=== PATIENT | female | born 1950 | race Caucasian/White ===

== ENCOUNTER 2018-04-28 12:16 | Outpatient (REF) | payer MEDICARE, OTHER, SELFPAY ==
[2018-04-28 14:11] LABS: CREATININE 0.79 mg/dL (0.55-1.02)
[2018-04-28 19:04] LABS: Bilirubin Negative (Negative); Blood Negative (Negative); Clarity Clear; Glucose Negative (Negative); Ketones Negative (Negative); Leukocyte Esterase Negative (Negative); Nitrite Negative (Negative); Urobilinogen 0.2 EU/dL (Up TO 0.2)
== END 2018-04-28 12:17 ==
LOC: NCHCN 12:16
PROVIDERS: Visit Provider Nurse Practitioner Family
DX: R10.9 Unspecified abdominal pain (principal)
CPT/HCPCS: 36415; 81003; 82565

== ENCOUNTER 2018-04-28 13:03 | Outpatient (CLI) | payer MEDICARE, OTHER, SELFPAY ==
--- NOTE | 2018-04-28 13:04 | DI.RPTCT_ITS ---
SYMPTOMS/DIAGNOSIS: LEFT LOWER QUADRANT ABDOMINAL PAIN, R10.32, FAMILY H/O KIDNEY STONES, Z84.1 CT SCAN OF THE ABDOMEN AND PELVIS: CT scan of the abdomen and pelvis was performed with oral contrast only. Intravenous contrast was not administered due to lack of IV access. Comparison is 09/23/15. The lung bases are clear. There is a moderate-sized hiatal hernia noted. Lack of IV contrast does limit evaluation of the abdominal organs. The unenhanced liver, gallbladder, bile ducts, pancreas and adrenal glands are unremarkable. The patient is status post splenectomy. The unenhanced kidneys show no evidence of nephrolithiasis or hydronephrosis. The urinary bladder is intact. The reproductive organs are grossly unremarkable. There is atherosclerosis of the abdominal aorta, but no aneurysmal dilatation is present. No significant abdominal or pelvic adenopathy , ascites or pneumoperitoneum is present. There is diverticulosis of the colon, but no evidence of acute diverticulitis. No evidence of bowel obstruction or inflammation. There is a normal appendix in the right lower quadrant. Note is made of a small fat-containing umbilical hernia. There is artifact in the pelvis from the patient's right hip prosthesis. IMPRESSION: 1. No evidence of nephrolithiasis or hydronephrosis. 2. Colonic diverticulosis but no evidence of acute diverticulitis. 3. No evidence of an acute abdomen. 4. Moderate-sized hiatal hernia.
== END 2018-04-28 13:04 ==
PROVIDERS: Visit Provider Nurse Practitioner Family
DX: R10.32 Left lower quadrant pain (principal); K57.30 Diverticulosis of large intestine without perforation or abscess without bleeding; K44.9 Diaphragmatic hernia without obstruction or gangrene; Z84.1 Family history of disorders of kidney and ureter
CPT/HCPCS: 74176

== ENCOUNTER 2018-05-23 15:32 | Outpatient (REF) | payer MEDICARE, SELFPAY ==
--- NOTE | 2018-05-23 11:30 | PAPFT_PTH ---
PATIENT: Joann Marcial LOC: [facility] U#:[id number] AGE/SX: 67/F ROOM: RE05/23/[address]: Chelsy Riley MD : [id number] BED: DIS: 05/23/2018 SPEC #: [id number] RECD: 05/23/18 17:59 STATUS: JOB REQ #: [id number] FREDERICK: 05/23/18 11:[address]: Chelsy Riley DEPT: [facility] Cytology RECD BY: Lizbet Jorge ENTERED: 05/23/18 17:59 SP TYPE: PAPFT OTHR DR: Colette Walton Tissues: 1 - CX/ENDOCX FOR PAP SMEARS Procedures: PAP THIN PREP/[facility] Screening HPV DNA PROBE Comments: [id number]
== END 2018-05-23 15:52 ==
LOC: LBN 15:32
PROVIDERS: Referring Provider Obstetrics & Gynecology; Visit Provider Obstetrics & Gynecology
DX: Z12.4 Encounter for screening for malignant neoplasm of cervix (principal); Z11.51 Encounter for screening for human papillomavirus (HPV)
CPT/HCPCS: 88142; 87624

== ENCOUNTER 2018-06-26 00:51 | Outpatient (CLI) | payer MEDICARE, OTHER, SELFPAY ==
--- NOTE | 2018-06-26 14:02 | DI.MAMMO_ITS ---
SYMPTOM/DIAGNOSIS: DIAGNOSTIC, MASTODYNIA, N64.4, FIBROCYSTIC BREASTS, N60.19 MAMMOGRAMS: Mammograms were interpreted according to the usual protocol including computer analysis with CAD system, tomosynthesis and C view imaging. Comparison is made with prior examinations. Breast density, category B. No masses or microcalcifications are seen. There is nothing to suggest malignancy. IMPRESSION: Negative mammogram. Routine screening is recommended. Category 1. MQSA ASSESSMENT OF FINDINGS: Negative. Category 1. Patient will receive a letter notifying them of these results. BI-RADS category B. There are scattered areas of fibroglandular density.
== END 2018-06-26 01:11 ==
PROVIDERS: Visit Provider Family Medicine
DX: N64.4 Mastodynia (principal); N60.11 Diffuse cystic mastopathy of right breast; N60.12 Diffuse cystic mastopathy of left breast
CPT/HCPCS: 77062; 77066; G0279

== ENCOUNTER 2018-07-04 15:33 | Outpatient (CLI) | payer MEDICARE, OTHER, SELFPAY ==
[2018-07-04 15:56] LABS: Abs Immature Grans 0.03 k/cumm (0.0-0.09); Absolute Basophil Count 0.12 k/cumm (0.0-0.2); Absolute Eosinophil Count 0.88 k/cumm (0.0-0.7); Absolute Lymphocyte Count 4.78 k/cumm (1.2-3.4); Absolute Neutrophil Count 4.45 k/cumm (1.2-6.7); Basophils % 1.1; Eosinophils % 7.8; Immature Grans % 0.3; Lymphocytes % 42.4; Mean Corp. HGB Concentration 33.3 g/dL (32.0-36.0); Mean Corpuscular Hemoglobin 31.6 pg (27.0-33.0); Mean Corpuscular Volume 94.8 fL (80-95); Monocytes % 8.9; Neutrophils % 39.5; Platelet Count 429 x1000/uL (130-400); RBC 4.43 m/cumm (4.00-5.20); RBC Distribution Width 15.5 % (11.7-14.6); White Blood Cell Count 11.27 k/cumm (4.4-10.8)
[2018-07-04 16:09] LABS: ALT 27 U/L (12-78); AST 16 U/L (15-37); Albumin 3.6 g/dL (3.4-5.0); Alkaline Phosphatase 60 U/L (46-116); Anion Gap 7.4 mmol/L (3-11); BUN 19 mg/dL (7-18); Bilirubin, Total 0.2 mg/dL (0.2-1.0); CO2 29.6 mmol/L (21.0-32.0); CREATININE 0.77 mg/dL (0.55-1.02); Calcium 8.9 mg/dL (8.5-10.1); Chloride 103 mmol/L (98-107); Glucose 103 mg/dL (70-100); LDH 155 U/L (81-234); Potassium 4.2 mmol/L (3.5-5.1); Sodium 140 mmol/L (136-145); Total Protein 7.9 g/dL (6.4-8.2)
== END 2018-07-04 15:53 ==
PROVIDERS: Visit Provider Internal Medicine Hematology & Oncology
DX: C82.07 Follicular lymphoma grade I, spleen (principal)
CPT/HCPCS: 36415; 80053; 83615; 85025

== ENCOUNTER 2019-01-08 09:10 | Outpatient (CLI) | payer MEDICARE, OTHER, SELFPAY ==
[2019-01-08 11:03] LABS: ALT 36 U/L (12-78); AST 23 U/L (15-37); Albumin 3.7 g/dL (3.4-5.0); Alkaline Phosphatase 57 U/L (46-116); Anion Gap 9.8 mmol/L (3-11); BUN 20 mg/dL (7-18); Bilirubin, Total 0.4 mg/dL (0.2-1.0); CO2 27.2 mmol/L (21.0-32.0); Calcium 9.3 mg/dL (8.5-10.1); Chloride 102 mmol/L (98-107); Glucose 103 mg/dL (70-100); LDH 149 U/L (81-234); Potassium 4.7 mmol/L (3.5-5.1); Sodium 139 mmol/L (136-145); Total Protein 7.7 g/dL (6.4-8.2)
== END 2019-01-08 09:30 ==
PROVIDERS: PCP Family Medicine; Visit Provider Nurse Practitioner Family
DX: C85.87 Other specified types of non-Hodgkin lymphoma, spleen (principal); C82.07 Follicular lymphoma grade I, spleen
CPT/HCPCS: 36415; 80053; 83615

== ENCOUNTER 2019-01-30 10:12 | Outpatient (CLI) | payer MEDICARE, OTHER, SELFPAY ==
[2019-01-30 10:44] LABS: Abs Immature Grans 0.01 k/cumm (0.0-0.09); Absolute Basophil Count 0.11 k/cumm (0.0-0.2); Absolute Eosinophil Count 0.68 k/cumm (0.0-0.7); Absolute Lymphocyte Count 4.63 k/cumm (1.2-3.4); Absolute Monocyte Count 0.89 k/cumm (0.11-0.7); Absolute Neutrophil Count 4.13 k/cumm (1.2-6.7); Basophils % 1.1; Eosinophils % 6.5; HCT 43.1 % (36.0-46.0); HGB 14.3 g/dL (12.0-15.5); Immature Grans % 0.1; Lymphocytes % 44.3; Mean Corp. HGB Concentration 33.2 g/dL (32.0-36.0); Mean Corpuscular Hemoglobin 31.4 pg (27.0-33.0); Mean Corpuscular Volume 94.5 fL (80-95); Mean Platelet Volume 9.5 fL (8.0-11.0); Monocytes % 8.5; Neutrophils % 39.5; Platelet Count 450 x1000/uL (130-400); RBC 4.56 m/cumm (4.00-5.20); RBC Distribution Width 16.3 % (11.7-14.6); White Blood Cell Count 10.45 k/cumm (4.4-10.8)
== END 2019-01-30 10:32 ==
PROVIDERS: PCP Family Medicine; Visit Provider Internal Medicine Hematology & Oncology
DX: C82.07 Follicular lymphoma grade I, spleen (principal)
CPT/HCPCS: 36415; 85025

== ENCOUNTER 2019-06-25 18:06 | Outpatient (REF) | payer MEDICARE, OTHER, SELFPAY ==
[2019-06-25 18:25] LABS: Abs Immature Grans 0.02 k/cumm (0.0-0.09); Absolute Eosinophil Count 0.72 k/cumm (0.0-0.7); Absolute Lymphocyte Count 3.66 k/cumm (1.2-3.4); Absolute Monocyte Count 1.04 k/cumm (0.11-0.7); Basophils % 0.9; Eosinophils % 6.8; HCT 42.5 % (36.0-46.0); Immature Grans % 0.2; Lymphocytes % 34.4; Mean Corp. HGB Concentration 32.9 g/dL (32.0-36.0); Mean Corpuscular Hemoglobin 31.3 pg (27.0-33.0); Mean Corpuscular Volume 95.1 fL (80-95); Mean Platelet Volume 9.5 fL (8.0-11.0); Monocytes % 9.8; Neutrophils % 47.9; Platelet Count 492 x1000/uL (130-400); RBC 4.47 m/cumm (4.00-5.20); White Blood Cell Count 10.64 k/cumm (4.4-10.8)
[2019-06-25 18:43] LABS: ALT 31 U/L (14-59); AST 19 U/L (15-37); Albumin 3.9 g/dL (3.4-5.0); Alkaline Phosphatase 60 U/L (46-116); Anion Gap 6.9 mmol/L (3-11); BUN 16 mg/dL (7-18); Bilirubin, Total 0.3 mg/dL (0.2-1.0); CO2 30.1 mmol/L (21.0-32.0); Calcium 9.2 mg/dL (8.5-10.1); Chloride 105 mmol/L (98-107); Glucose 105 mg/dL (70-100); LDH 168 U/L (81-234); Potassium 3.9 mmol/L (3.5-5.1); Sodium 142 mmol/L (136-145); Total Protein 7.7 g/dL (6.4-8.2)
[2019-06-27 12:19] LABS: Hepatitis C Ab w Rflx HCV PCR Negative (NEGAT)
== END 2019-06-25 18:26 ==
LOC: NCHCN 18:06
PROVIDERS: PCP Family Medicine; Visit Provider Family Medicine
DX: R10.2 Pelvic and perineal pain (principal); Z85.72 Personal history of non-Hodgkin lymphomas; Z11.59 Encounter for screening for other viral diseases
CPT/HCPCS: 80053; 86803; 83615; 85025

== ENCOUNTER 2019-06-25 18:08 | Outpatient (REF) | payer MEDICARE, OTHER, SELFPAY ==
[2019-06-25 18:21] LABS: Bilirubin Negative (Negative); Blood Trace-lysed (Negative); Clarity Clear (Clear); Glucose Negative (Negative); Ketones Negative (Negative); Leukocyte Esterase Negative (Negative); Nitrite Negative (Negative); Specific Gravity 1.025 (1.005-1.025); Urobilinogen 0.2 EU/dL (Up TO 0.2); pH 5.5 (5-8)
[2019-06-25 18:30] LABS: Bacteria Few HPF (Negative); C & S Indicated? No; Casts Negative LPF (Negative); Crystals Negative HPF (Negative); Epithelial Cells Moderate HPF (Negative); Mucus Negative (Negative); Other Cells Few Transitional (Negative); RBC 0-2 (0-2)
== END 2019-06-25 18:28 ==
LOC: NCHCN 18:08
PROVIDERS: PCP Family Medicine; Visit Provider Family Medicine
DX: R10.2 Pelvic and perineal pain (principal)
CPT/HCPCS: 81003; 81015

== ENCOUNTER 2020-06-18 02:53 | Outpatient (CLI) | payer MEDICARE, OTHER, SELFPAY ==
[2020-06-18 10:22] LABS: Abs Immature Grans 0.01 10^3/uL (0.0-0.06); Absolute Basophil Count 0.14 10^3/uL (0.0-0.2); Absolute Eosinophil Count 0.73 10^3/uL (0.0-0.7); Absolute Lymphocyte Count 4.52 10^3/uL (1.2-3.4); Absolute Monocyte Count 0.79 10^3/uL (0.1-0.8); Absolute Neutrophil Count 2.43 10^3/uL (1.2-6.7); Basophils % 1.6; Eosinophils % 8.5; HCT 45.5 % (36.0-46.0); Immature Grans % 0.1; Lymphocytes % 52.4; MCH 31.3 pg (27.0-33.0); MCV 94.8 fL (80-95); MPV 8.8 fL (8.0-11.0); Monocytes % 9.2; Neutrophils % 28.2; Nucleated RBC 0 %; Platelet Count 479 10^3/uL (130-400); RDW-SD 52.9 fL; WBC 8.62 10^3/uL (4.4-10.8)
[2020-06-18 10:44] LABS: ALT 25 U/L (14-59); AST 20 U/L (15-37); Albumin 3.8 g/dL (3.4-5.0); Alkaline Phosphatase 51 U/L (46-116); Anion Gap 5.9 mmol/L (3-11); BUN 16 mg/dL (7-18); Bilirubin, Total 0.6 mg/dL (0.2-1.0); CO2 30.1 mmol/L (21.0-32.0); CREATININE 0.73 mg/dL (0.55-1.02); Calcium 9.4 mg/dL (8.5-10.1); Chloride 102 mmol/L (98-107); Glucose 107 mg/dL (74-106); Potassium 4.2 mmol/L (3.5-5.1); Sodium 138 mmol/L (136-145); Total Protein 8.3 g/dL (6.4-8.2)
== END 2020-06-18 03:13 ==
PROVIDERS: PCP Family Medicine; Visit Provider Internal Medicine Hematology & Oncology
DX: C82.07 Follicular lymphoma grade I, spleen (principal)
CPT/HCPCS: 36415; 80053; 85025

== ENCOUNTER 2020-09-08 14:50 | Outpatient (REF) | payer MEDICARE, OTHER, SELFPAY ==
[2020-09-08 18:31] LABS: Abs Immature Grans 0.01 10^3/uL (0.0-0.06); Absolute Basophil Count 0.13 10^3/uL (0.0-0.2); Absolute Eosinophil Count 0.46 10^3/uL (0.0-0.7); Absolute Lymphocyte Count 3.71 10^3/uL (1.2-3.4); Absolute Neutrophil Count 3.65 10^3/uL (1.2-6.7); Basophils % 1.5; Eosinophils % 5.4; HCT 44.2 % (36.0-46.0); Immature Grans % 0.1; Lymphocytes % 43.3; MCHC 33.9 % (32.0-36.0); MCV 94.2 fL (80-95); MPV 9.6 fL (8.0-11.0); Neutrophils % 42.7; Nucleated RBC 0 %; Platelet Count 471 10^3/uL (130-400); RBC 4.69 10^6/uL (3.93-5.22); RDW 14.6 % (11.7-14.6); RDW-SD 50.6 fL; WBC 8.56 10^3/uL (4.4-10.8)
[2020-09-08 18:43] LABS: ALT 29 U/L (14-59); AST 19 U/L (15-37); Albumin 4.3 g/dL (3.4-5.0); Alkaline Phosphatase 55 U/L (46-116); Anion Gap 8.4 mmol/L (3-11); BUN 16 mg/dL (7-18); Bilirubin, Total 0.4 mg/dL (0.2-1.0); C-Reactive Protein 0.12 mg/dL (0.0-0.3); CO2 27.6 mmol/L (21.0-32.0); CREATININE 0.78 mg/dL (0.55-1.02); Calcium 9.3 mg/dL (8.5-10.1); Chloride 105 mmol/L (98-107); Glucose 108 mg/dL (74-106); LDH 166 U/L (81-234); Potassium 3.9 mmol/L (3.5-5.1); Sodium 141 mmol/L (136-145); Total Protein 8.3 g/dL (6.4-8.2)
[2020-09-08 19:11] LABS: Ferritin 209 ng/mL (8-252)
[2020-09-08 20:53] LABS: ESR 16 mm/hr (0-30)
== END 2020-09-08 15:10 ==
LOC: NCHCN 14:50
PROVIDERS: Nurse Practitioner Family; PCP Family Medicine; Visit Provider Family Medicine
DX: Z90.81 Acquired absence of spleen (principal)
CPT/HCPCS: 80053; 85652; 82728; 83615; 85025; 85610; 86140

== ENCOUNTER 2020-11-08 21:43 | Outpatient (REF) | payer MEDICARE, OTHER, SELFPAY ==
[2020-11-08 15:53] LABS: Absolute Basophil Count 0.14 10^3/uL (0.0-0.2); Absolute Eosinophil Count 0.49 10^3/uL (0.0-0.7); Absolute Lymphocyte Count 3.76 10^3/uL (1.2-3.4); Absolute Monocyte Count 0.66 10^3/uL (0.1-0.8); Basophils % 1.9; Eosinophils % 6.8; HCT 44.1 % (36.0-46.0); HGB 14.6 g/dL (11.2-15.7); Lymphocytes % 51.9; MCH 31.9 pg (27.0-33.0); MCHC 33.1 % (32.0-36.0); MCV 96.3 fL (80-95); MPV 9.2 fL (8.0-11.0); Monocytes % 9.1; Neutrophils % 30.3; Nucleated RBC 0 %; Platelet Count 490 10^3/uL (130-400); RBC 4.58 10^6/uL (3.93-5.22); RDW 14.7 % (11.7-14.6); RDW-SD 52.3 fL; WBC 7.25 10^3/uL (4.4-10.8)
[2020-11-08 16:03] LABS: ALT 28 U/L (14-59); AST 16 U/L (15-37); Albumin 4.1 g/dL (3.4-5.0); Alkaline Phosphatase 56 U/L (46-116); Anion Gap 8.5 mmol/L (3-11); BUN 17 mg/dL (7-18); Bilirubin, Total 0.4 mg/dL (0.2-1.0); C-Reactive Protein 0.07 mg/dL (0.0-0.3); CO2 28.5 mmol/L (21.0-32.0); CREATININE 0.8 mg/dL (0.55-1.02); Calcium 9.4 mg/dL (8.5-10.1); Chloride 103 mmol/L (98-107); Glucose 95 mg/dL (74-106); Potassium 4.6 mmol/L (3.5-5.1); Sodium 140 mmol/L (136-145); Total Protein 8.2 g/dL (6.4-8.2)
== END 2020-11-08 21:44 | disposition home or self-care (01) ==
LOC: LBN 21:43
PROVIDERS: PCP Family Medicine; Visit Provider Family Medicine
DX: R10.32 Left lower quadrant pain (principal); Z85.72 Personal history of non-Hodgkin lymphomas; D47.3 Essential (hemorrhagic) thrombocythemia; Z90.81 Acquired absence of spleen
CPT/HCPCS: 80053; 85025; 86140

== ENCOUNTER 2020-11-19 01:55 | Outpatient (CLI) | payer MEDICARE, OTHER, SELFPAY ==
[2020-11-19] MEDS: Omnipaque 350 MG/ML 50 ML BTL IJ (11:20)
[2020-11-19] MEDS: Breeza Beverage 473 ML BTL PO ×2 (11:41→11:42)
--- NOTE | 2020-11-19 12:48 | DI.CT_ITS ---
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 TECHNIQUE: Imaging Protocol: Axial computed tomography images with coronal and sagittal reformatted images were created and reviewed CONTRAST MATERIAL: Intravenous: Omnipaque 100cc Oral: Yes COMPARISON: CT ABD PELVIS WO CONTRAST from 04/28/2018 FINDINGS: VISUALIZED LUNG BASES: No nodules nor pleural effusions evident. ABDOMEN: Moderate-sized hiatal hernia is unchanged from 2018. Heart size is normal. LIVER: There are no obvious focal hepatic lesions evident . GALLBLADDER/BILIARY: Subtle large abnormal density is noted in the gallbladder lumen which is probabl y a large gallstone. Gallbladder wall is not edematous and the gallbladder is not distended. No per icholecystic fluid. The CBD is not dilated. PANCREAS: There is a 1.4 by 0.6 cm calcification noted in the tail the pancreas and immediately adjac ent to this is an enhancing 11 by 8 millimeter nodular density which is also unchanged from April 17. This patient has had prior splenectomy. SPLEEN: Surgically absent. Splenic vein is not seen. Portal vein confluence is patent. ADRENALS: There are no significant adrenal masses. KIDNEYS:No cysts evident. No solid renal masses. No calculi nor hydronephrosis.. ABDOMINAL AORTA: Abdominal aorta is not enlarged. LYMPH NODES:There is no retroperitineal nor paraaortic adenopathy. ABDOMINAL WALL/GI: No evidence of significant anterior abdominal wall hernia. No bowel obstruction. PELVIS: GI: Appendix is not seen is a separate structure but there no secondary signs of acute appendicitis.N o evidence of acute sigmoid diverticulitis. LYMPH NODES: There is no intrapelvic nor inguinal adenopathy. REPRODUCTIVE: Age appropriate. There is no free fluid in the pelvis. URINARY BLADDER: No calculi nor obvious masses evident OSSEOUS: Right hip prosthesis noted. Degenerative changes opposite-left hip. IMPRESSION: 1. Cholelithiasis. There is a large subtle mass or gallstone in the gallbladder lumen. Recommend ul trasound examination. The gallbladder is not distended or edematous. There is no dilatation of the biliary tree, both intra and extrahepatic 2. The spleen is again noted be surgically absent. An 11 x 8 millimeter small nodular density in thi s region as well as a calcification in the tail the Jovon pancreas are unchanged. There are no new p ancreatic masses. No dilatation of pancreatic. 3. The appendix is not seen is a separate structure. However, there are no obvious secondary signs a cute appendicitis. 4. Right hip prosthesis. RADIATION DOSE DELIVERED: 840.82mGy.cm Total DLP DATA REPOSITORY: All CT scans at this facility are submitted to the National Radiology Data Registry (NRDR) Dose Index Registry (DIR) with the [employer] (ACR). RADIATION OPTIMIZATION: All CT scans at this facility use at least one of these dose optimization te chniques: automated exposure control; mA and/or kV adjustment per patient size (includes targeted exa ms where dose is matched to clinical indication); or iterative reconstruction.
[2020-11-19] MEDS: Omnipaque 350 MG/ML 100 ML BTL IJ (13:04)
[2020-11-19] MEDS: Normal Saline - Diluent 50 ML VIAL IV (13:04)
[2020-11-19] MEDS: Normal Saline Flush 10 ML SYR IVP (13:06)
== END 2020-11-19 02:15 ==
PROVIDERS: PCP Family Medicine; Visit Provider Family Medicine
DX: R10.32 Left lower quadrant pain (principal); Z85.72 Personal history of non-Hodgkin lymphomas; Z90.81 Acquired absence of spleen; K44.9 Diaphragmatic hernia without obstruction or gangrene; K80.20 Calculus of gallbladder without cholecystitis without obstruction; Z96.641 Presence of right artificial hip joint
CPT/HCPCS: 74177; J3490; Q9967

== ENCOUNTER 2020-12-01 02:27 | Outpatient (CLI) | payer MEDICARE, OTHER, SELFPAY ==
--- NOTE | 2020-12-01 | DI.MAMMO_ITS ---
EXAM: MG MAMMO SCREENING CLINICAL HISTORY: SCREENING, Z12.31 TECHNIQUE: Bilateral full field digital CC and MLO mammographic images were obtained with 3D tomosyn thesis and utilizing computer aided detection (CAD). COMPARISON: Available for comparison. FINDINGS: Masses/Architectural Distortion: None seen. Microcalcifications: No suspicious pleomorphic-type are seen. Skin Thickening/Nipple Retraction: None. IMPRESSION: 1. No significant interval change with no specific features of malignancy noted. 2. Unless there is more urgent need, screening mammography is recommended, as per [place] [employer] guidelines. BI-RADS Category 1 - Negative Breast Density - Category B - Scattered areas of fibroglandular density Breast density category C or D implies that the patient has dense breast tissue. Dense breast tissue is very common and is not abnormal but dense breast tissue can make it harder to find cancer on a ma mmogram. Also, dense breast tissue may increase their breast cancer risk. This information about the result of the mammogram report was provided to the patient to raise their awareness. Use this report when you speak with the patient about their risks for breast cancer, which includes their family hist ory. At that time, you may recommend for more screening tests (Ultrasound or MRI) as they might be us eful based on their risk. A negative radiographic report should not delay biopsy if a dominant or clinically suspicious mass is present. Up to ten percent of cancers are not identified on mammography. A negative report may reinforce clinical impression. Adenosis and dense breasts may obscure an underlying neoplasm. False positive reports average 6 to 10%. Patient will receive a letter notifying them of these results.
== END 2020-12-01 02:47 ==
PROVIDERS: PCP Family Medicine; Visit Provider Family Medicine
DX: Z12.31 Encounter for screening mammogram for malignant neoplasm of breast (principal)
CPT/HCPCS: 77063; 77067

== ENCOUNTER 2021-02-24 12:01 | Outpatient (REF) | payer MEDICARE, OTHER, SELFPAY ==
[2021-02-24 14:17] LABS: TSH (W/Ref FT4) 0.68 uIU/mL (0.36-3.74)
== END 2021-02-24 12:02 | disposition home or self-care (01) ==
LOC: NCHCN 12:01
PROVIDERS: PCP Family Medicine; Visit Provider Family Medicine
DX: R25.1 Tremor, unspecified (principal)
CPT/HCPCS: 84443

== ENCOUNTER 2021-05-28 14:23 | Outpatient (CLI) | payer MEDICARE, OTHER, SELFPAY ==
[2021-05-28] MEDS: Breeza Beverage 473 ML BTL PO ×2 (12:18→12:19)
[2021-05-28] MEDS: Omnipaque 350 MG/ML 50 ML BTL PO (12:19)
--- NOTE | 2021-05-28 14:07 | DI.CT_ITS ---
Exam(s) CT ABDOMEN PELVIS W EXAM: CT ABDOMEN PELVIS W CLINICAL HISTORY: LLQ ABD PAIN, CONCERN FOR DIVERTICULITIS TECHNIQUE: Imaging Protocol: Axial computed tomography images with coronal and sagittal reformatted images were created and reviewed CONTRAST MATERIAL: Intravenous: Omnipaque 350 Contrast volume:98 mL Oral: Yes COMPARISON: CT CT ABDOMEN PELVIS W from 11/19/2020 FINDINGS: ABDOMEN: Lung Bases: Bilateral basilar atelectasis. Moderate hiatal hernia. Liver: Normal density. No measurable mass. Portal, Superior Mesenteric, and Splenic Veins: Unremarkable. Gallbladder and Biliary Tract: Cholelithiasis. No biliary ductal dilatation. No pericholecystic flu id. Pancreas: Normal density, no abnormal calcifications or inflammatory process. Spleen: Status post splenectomy. There is a 9 mm splenule in the right upper left upper quadrant. Adrenals: No masses seen. Kidneys: Normal size, contour and axis. No radiodense stones or obstructive uropathy. No masses seen. Abdominal Aorta: Abdominal portion non-dilated. Mild atherosclerosis. Bowel: No obstruction or bowel wall thickening. Appendix is unremarkable. There is diverticulosis of the sigmoid colon, but no evidence of acute diverticulitis. Peritoneal Cavity: No ascites, collection or mesenteric inflammatory response. No free air. Lymph Nodes: Stable mildly enlarged lymph nodes are seen in the mesentery. Bones: Within normal limits for the patient's age. The patient has a right total hip replacement. M oderate degenerative changes are seen in the left hip. Soft Tissues: Unremarkable. PELVIS: Bladder: Symmetric distention, no gross wall thickening. Reproductive Organs: Unremarkable as visualized. Lymph Nodes: Within normal limits. Bones: Within normal limits for the patient's age. IMPRESSION: 1. There is sigmoid diverticulosis but no evidence of acute diverticulitis. 2. No acute abdominal pelvic process. RADIATION DOSE DELIVERED: 859.16mGy.cm Total DLP DATA REPOSITORY: All CT scans at this facility are submitted to the National Radiology Data Registry (NRDR) Dose Index Registry (DIR) with the [employer] (ACR). RADIATION OPTIMIZATION: All CT scans at this facility use at least one of these dose optimization te chniques: automated exposure control; mA and/or kV adjustment per patient size (includes targeted exa ms where dose is matched to clinical indication); or iterative reconstruction.
[2021-05-28] MEDS: Normal Saline - Diluent 50 ML VIAL IV (14:08)
[2021-05-28] MEDS: Omnipaque 350 MG/ML 100 ML BTL IJ (14:10)
== END 2021-05-28 14:43 ==
PROVIDERS: PCP Family Medicine; Visit Provider Physician Assistant Medical
DX: R10.32 Left lower quadrant pain (principal); K57.30 Diverticulosis of large intestine without perforation or abscess without bleeding
CPT/HCPCS: 74177; J3490; Q9967

== ENCOUNTER 2021-05-28 14:24 | Outpatient (CLI) | payer MEDICARE, OTHER, SELFPAY ==
[2021-05-28 12:04] LABS: Abs Immature Grans 0.02 10^3/uL (0.0-0.06); Absolute Basophil Count 0.13 10^3/uL (0.0-0.2); Absolute Eosinophil Count 0.62 10^3/uL (0.0-0.7); Absolute Lymphocyte Count 4.25 10^3/uL (1.2-3.4); Absolute Neutrophil Count 2.53 10^3/uL (1.2-6.7); Basophils % 1.6; Eosinophils % 7.4; HCT 44.8 % (36.0-46.0); Immature Grans % 0.2; Lymphocytes % 50.9; MCH 31.9 pg (27.0-33.0); MCHC 33.5 % (32.0-36.0); MCV 95.3 fL (80-95); MPV 8.9 fL (8.0-11.0); Monocytes % 9.6; Neutrophils % 30.3; Nucleated RBC 0 %; Platelet Count 483 10^3/uL (130-400); RDW-SD 52.8 fL; WBC 8.35 10^3/uL (4.4-10.8)
[2021-05-28 12:21] LABS: ALT 22 U/L (14-59); AST 18 U/L (15-37); Alkaline Phosphatase 53 U/L (46-116); Anion Gap 8.1 mmol/L (3-11); BUN 9 mg/dL (7-18); Bilirubin, Total 0.4 mg/dL (0.2-1.0); CO2 27.9 mmol/L (21.0-32.0); CREATININE 0.8 mg/dL (0.55-1.02); Calcium 9.6 mg/dL (8.5-10.1); Chloride 104 mmol/L (98-107); Glucose 105 mg/dL (74-106); Potassium 4.5 mmol/L (3.5-5.1); Sodium 140 mmol/L (136-145); Total Protein 8.7 g/dL (6.4-8.2)
== END 2021-05-28 14:25 | disposition home or self-care (01) ==
LOC: LBO 14:25
PROVIDERS: PCP Family Medicine; Visit Provider Physician Assistant Medical
DX: R10.32 Left lower quadrant pain (principal)
CPT/HCPCS: 36415; 80053; 74177; 85025; J3490; Q9967

== ENCOUNTER 2021-07-22 02:30 | Outpatient (CLI) | payer MEDICARE, OTHER, SELFPAY ==
[2021-07-22 09:35] LABS: Abs Immature Grans 0.01 10^3/uL (0.0-0.06); Absolute Basophil Count 0.11 10^3/uL (0.0-0.2); Absolute Eosinophil Count 0.48 10^3/uL (0.0-0.7); Absolute Lymphocyte Count 3.63 10^3/uL (1.2-3.4); Absolute Monocyte Count 0.74 10^3/uL (0.1-0.8); Absolute Neutrophil Count 2.37 10^3/uL (1.2-6.7); Basophils % 1.5; Eosinophils % 6.5; HGB 14.1 g/dL (11.2-15.7); Immature Grans % 0.1; Lymphocytes % 49.5; MCH 32.6 pg (27.0-33.0); MCHC 33.6 % (32.0-36.0); MPV 8.6 fL (8.0-11.0); Monocytes % 10.1; Neutrophils % 32.3; Nucleated RBC 0 %; Platelet Count 476 10^3/uL (130-400); RBC 4.33 10^6/uL (3.93-5.22); RDW 14.7 % (11.7-14.6); RDW-SD 53.5 fL; WBC 7.34 10^3/uL (4.4-10.8)
[2021-07-22 09:52] LABS: ALT 22 U/L (14-59); AST 13 U/L (15-37); Albumin 3.8 g/dL (3.4-5.0); Alkaline Phosphatase 51 U/L (46-116); BUN 16 mg/dL (7-18); Bilirubin, Total 0.5 mg/dL (0.2-1.0); CREATININE 0.8 mg/dL (0.55-1.02); Chloride 102 mmol/L (98-107); Glucose 130 mg/dL (74-106); Potassium 3.8 mmol/L (3.5-5.1); Sodium 138 mmol/L (136-145); Total Protein 8.1 g/dL (6.4-8.2)
== END 2021-07-22 02:31 | disposition home or self-care (01) ==
PROVIDERS: PCP Family Medicine; Visit Provider Internal Medicine Hematology & Oncology
DX: C82.07 Follicular lymphoma grade I, spleen (principal)
CPT/HCPCS: 36415; 80053; 85025

== ENCOUNTER 2021-11-04 01:22 | Outpatient (CLI) | payer MEDICARE, SELFPAY ==
--- NOTE | 2021-11-04 | DI.US_ITS ---
Exam(s) US THYROID EXAM: US THYROID CLINICAL HISTORY: F/U MULTINODULAR GOITER,E04.2 TECHNIQUE: Ultrasound performed using standard protocol. COMPARISON: US LEFT BREAST ULTRASOUND from 11/06/2012 FINDINGS: Thyroid ultrasound was performed according to the usual protocol. Right thyroid lobe measures 50 x 22 x 21 millimeters. Left thyroid lobe measures 53 x 22 x 26 millim eters. Thyroid isthmus is about 2.6 millimeters in thickness. No abnormal adenopathy identified in cervical lymph nodes. There are multiple thyroid nodules bilaterally consistent with multinodular goiter. There is nodule of the mid to upper pole of the left thyroid lobe measuring 27 x 19 x 17 millimeters. This is mixed cystic and solid in composition with a mural nodule. The nodule is isoechoic to surr ounding thyroid tissue. Lesion is wider than tall and has smooth margins and contains couple of macr ocalcifications. This is a TR 3 lesion by the TI-RADS classification, follow-up thyroid ultrasound r ecommended in 12 months for this 27 millimeter in diameter lesion. Additionally, there is a 9 x 8 x 5 millimeter in diameter nodule of the mid to upper pole of right th yroid lobe. This is solid and is isoechoic to surrounding tissue. It is wider than tall and has lob ulated margins. No significant echogenic foci. This is a TR 4 lesion, size less than 1 cm, no further follow-up recommended but this lesion can be r e-evaluated at the time of the 12 month follow-up for the left lobe nodule. IMPRESSION: Twelve month follow-up thyroid ultrasound recommended to monitor 27 millimeter in diameter TR 3 lesio n by TI-RADS calcification seen in the left thyroid lobe. Please see above discussion. DATA REPOSITORY:
== END 2021-11-04 01:42 ==
PROVIDERS: PCP Family Medicine; Visit Provider Family Medicine
DX: E04.2 Nontoxic multinodular goiter (principal)
CPT/HCPCS: 76536

== ENCOUNTER 2022-07-20 12:52 | Outpatient (CLI) | payer MEDICARE, SELFPAY ==
[2022-07-20 10:46] LABS: Abs Immature Grans 0.01 10^3/uL (0.0-0.06); Absolute Basophil Count 0.15 10^3/uL (0.0-0.2); Absolute Eosinophil Count 0.47 10^3/uL (0.0-0.7); Absolute Monocyte Count 0.75 10^3/uL (0.1-0.8); Absolute Neutrophil Count 3.24 10^3/uL (1.2-6.7); Basophils % 1.8; Eosinophils % 5.7; HCT 43.8 % (36.0-46.0); HGB 14.7 g/dL (11.2-15.7); Immature Grans % 0.1; Lymphocytes % 43.8; MCH 32.2 pg (27.0-33.0); MCHC 33.6 % (32.0-36.0); MCV 96 fL (80-95); MPV 8.8 fL (8.0-11.0); Monocytes % 9.1; Neutrophils % 39.5; Platelet Count 476 10^3/uL (130-400); RBC 4.56 10^6/uL (3.93-5.22); RDW 14.6 % (11.7-14.6); RDW-SD 51.2 fL; WBC 8.22 10^3/uL (4.4-10.8)
[2022-07-20 11:04] LABS: ALT 18 U/L (14-59); AST 18 U/L (15-37); Albumin 3.9 g/dL (3.4-5.0); Alkaline Phosphatase 54 U/L (46-116); Anion Gap 8.2 mmol/L (3-11); BUN 11 mg/dL (7-18); Bilirubin, Total 0.5 mg/dL (0.2-1.0); CO2 27.8 mmol/L (21.0-32.0); CREATININE 0.9 mg/dL (0.55-1.02); Calcium 9.2 mg/dL (8.5-10.1); Chloride 101 mmol/L (98-107); Estimated GFR 68.35 (mL/min/1.73m2); Glucose 100 mg/dL (74-106); LDH 145 U/L (81-234); Potassium 3.9 mmol/L (3.5-5.1); Sodium 137 mmol/L (136-145); Total Protein 8.3 g/dL (6.4-8.2)
[2022-07-21 08:57] LABS: IgA 153 mg/dL (85-499); IgG 1689 mg/dL (610-1616); IgM 68 mg/dL (35-242)
== END 2022-07-20 12:53 | disposition home or self-care (01) ==
LOC: LBO 12:55
PROVIDERS: PCP Family Medicine; Visit Provider Internal Medicine Hematology & Oncology
DX: C82.07 Follicular lymphoma grade I, spleen (principal)
CPT/HCPCS: 36415; 80053; 82784; 83615; 85025

== ENCOUNTER 2023-07-27 14:48 | Outpatient (CLI) | payer MEDICARE, SELFPAY ==
[2023-07-27 12:34] LABS: Abs Immature Grans 0.02 10^3/uL (0.0-0.06); Absolute Basophil Count 0.12 10^3/uL (0.0-0.2); Absolute Eosinophil Count 0.42 10^3/uL (0.0-0.7); Absolute Lymphocyte Count 3.93 10^3/uL (1.2-3.4); Absolute Monocyte Count 0.87 10^3/uL (0.1-0.8); Absolute Neutrophil Count 4.15 10^3/uL (1.2-6.7); Basophils % 1.3; Eosinophils % 4.4; HCT 41.4 % (36.0-46.0); HGB 13.9 g/dL (11.2-15.7); Immature Grans % 0.2; Lymphocytes % 41.3; MCH 31.9 pg (27.0-33.0); MCHC 33.6 % (32.0-36.0); MCV 95 fL (80-95); MPV 8.6 fL (8.0-11.0); Monocytes % 9.1; Neutrophils % 43.7; Platelet Count 480 10^3/uL (130-400); RBC 4.36 10^6/uL (3.93-5.22); RDW 14.6 % (11.7-14.6); RDW-SD 51.4 fL; WBC 9.51 10^3/uL (4.4-10.8)
[2023-07-27 12:49] LABS: ALT 25 U/L (14-59); AST 23 U/L (15-37); Albumin 3.9 g/dL (3.4-5.0); Alkaline Phosphatase 53 U/L (46-116); BUN 17 mg/dL (7-18); Bilirubin, Total 0.5 mg/dL (0.2-1.0); CREATININE 0.9 mg/dL (0.55-1.02); Calcium 9.7 mg/dL (8.5-10.1); Chloride 103 mmol/L (98-107); Estimated GFR 67.92 (mL/min/1.73m2); Glucose 153 mg/dL (74-106); LDH 181 U/L (81-234); Potassium 4.1 mmol/L (3.5-5.1); Sodium 139 mmol/L (136-145); Total Protein 8.5 g/dL (6.4-8.2)
== END 2023-07-27 14:49 | disposition home or self-care (01) ==
LOC: LBO 14:48
PROVIDERS: PCP Family Medicine; Visit Provider Internal Medicine Hematology & Oncology
DX: C82.07 Follicular lymphoma grade I, spleen (principal)
CPT/HCPCS: 36415; 80053; 83615; 85025

== ENCOUNTER 2023-08-15 14:51 | Outpatient (REF) | payer MEDICARE, SELFPAY ==
[2023-08-15 17:02] LABS: Calculated LDL 205 mg/dL (<100); Cholesterol 304 mg/dL (<200); HDL Cholesterol 68 mg/dL (40-60); Triglyceride 159 mg/dL (<150)
== END 2023-08-15 14:52 | disposition home or self-care (01) ==
LOC: NCHCN 14:51
PROVIDERS: PCP Family Medicine; Visit Provider Family Medicine
DX: Z00.00 Encounter for general adult medical examination without abnormal findings (principal); Z86.32 Personal history of gestational diabetes
CPT/HCPCS: 80061; 83036

== ENCOUNTER 2024-01-24 20:21 | Observation (INO) | payer MEDICARE, SELFPAY ==
[2024-01-24] VITALS (32 sets, daily range): BP systolic 138–181; BP diastolic 66–130; PULSE 79–111; RESP 10–22; TEMP 36.4; O2SAT 98
--- NOTE | 2024-01-24 20:15 | RT.EKG_ITS ---
APPROVED REPORT Exam: Resting ECG Reason for Exam: left sided numbness Patient Location: E HR:93 bpm ECG Measurements Heart Rate 93 AXIS LA 220 P 54 QRSd 98 QRS -4 QT 385 T 70 QTc 478 Conclusion Sinus rhythm...normal P axis, V-rate 60- 99 Prolonged LA interval...LA >215, V-rate 91-120 Normal sinus rhythm at a rate of 93 with first-degree AV block and a LA interval of 222 ms. Normal a xis. QTc within normal limits. No acute injury pattern. T wave flattening in aVL. No prior for co mparison.
--- NOTE | 2024-01-24 20:30 | DI.RAD_ITS ---
Exam(s) XR CHEST 1V IN DI DEPT EXAM: XR CHEST 1V IN DI DEPT CLINICAL HISTORY: Left-sided weakness TECHNIQUE: 2D digital imaging was performed. COMPARISON: CR CHEST 2 VIEWS PA,LAT from 02/24/2010 FINDINGS: LUNGS: Clear. No pleural abnormality seen. HEART: Normal size. AORTA: Normal diameter. BONES: Unremarkable for age. Soft tissues: Unremarkable. IMPRESSION: No acute findings. DATA REPOSITORY: RADIATION DOSE DELIVERED:
--- NOTE | 2024-01-24 20:30 | DI.CT_ITS ---
Exam(s) CT HEAD - STROKE PROTOCOL EXAM: CT HEAD - STROKE PROTOCOL CLINICAL HISTORY: Left-sided weakness. TECHNIQUE: Imaging Protocol: Axial computed tomography images with coronal and sagittal reformatted images were created and reviewed COMPARISON: CT,PT PET/CT STANDARD (Skull from 04/03/2013 FINDINGS: Ventricles and Extra axial spaces: Normal in size and morphology for the patient's age. Hemorrhage: None. Cerebral parenchyma: No evidence of acute infarct or mass. Midline shift: None. Brainstem/Cerebellum: Normal. Calvarium: Normal. Visualized Paranasal sinuses:Minimal mucosal thickening at floor of right maxillary sinus. Mastoids: Clear. Soft Tissues: Unremarkable. ORBITS: Unremarkable. PITUITARY: Not enlarged. IMPRESSION: No acute intracranial process. RADIATION DOSE DELIVERED: 758.27mGy.cm Total DLP DATA REPOSITORY: All CT scans at this facility are submitted to the National Radiology Data Registry (NRDR) Dose Index Registry (DIR) with the [employer] (ACR). RADIATION OPTIMIZATION: All CT scans at this facility use at least one of these dose optimization te chniques: automated exposure control; mA and/or kV adjustment per patient size (includes targeted exa ms where dose is matched to clinical indication); or iterative reconstruction.
--- NOTE | 2024-01-24 20:41 | ED.GENADUL_ITS ---
Discharge Plan Disposition Patient Disposition: Admit to [facility] Discharge Details Clinical Impression: Left sided numbness Admit Date/Time: 01/24/24 23:00 Admit Provider: Adrián Bermudez Attending Provider: Adrián Bermudez Primary Care Provider: Todd Sosa ED Provider: Todd Kingsley Discharge Data Discharge Date/Time-TO BE ENTERED AT DEPARTURE: 01/24/24 23:51 HPI General Date/Time Provider Initiated Documentation: 01/24/24 20:39 . HPI Narrative: MDM This is an overall very well-appearing normothermic and not tachycardic 73-year-old female with risk factors of hypertension hyperlipidemia now with resolving left sided numbness concerning for the possibility of TIA versus CVA. No pain out of proportion to suggest necrotizing soft tissue infection. No tearing quality to suggest aortic dissection. No neck pain to suggest cervical arterial dissection. No chest pain to suggest ACS and ECG is nonischemic. No trauma so doubt pneumothorax. No tonic-clonic activity to suggest seizures so I did not feel that the patient required an EEG. No fevers to suggest meningitis I did not feel that the patient required a lumbar puncture. Will complete dry CT head to assess for bleed then consult tele neuro. 9:45 PM I spoke with Dr. Prabhakar from neurology who advised CTA head and neck to assess for dissection also echo with bubble study and hospitalization for MRI. She also advised atorvastatin 80 and aspirin 81 mg starting tomorrow. She advised holding clopidogrel a unless the patient was having a cervical dissection. 10:01 PM CBC showing thrombocytosis/improved compared to prior. Leukocytosis. No anemia. I spoke with Dr. Bermudez who agreed graciously to accept the patient for hospitalization. . Insert ultrasound IV US Guided Peripheral IV Procedure Note Indication: Difficult IV access Peripheral Prep: Skin prep: Alcohol prep. Prep agent: Prep was allowed to dry for 30 seconds. Sterility: Gloves. Insertion: Appropriate procedural pause was taken. Ultrasound guided 18-gauge catheter was placed under real-time guidance in the patient's right basilic vein in the forearm. Post Procedure: Estimated blood loss: Minimal Complications: None Ultrasound IV confirmed by bubble study. 01/24 Late charting due to pt care. CTA w/no dissection. Chronic conditions affecting the care of the patient: Hypertension hyperlipidemia History obtained from an outside historian: Patient's External record review: N/A Diagnostic interpretations performed by me: Per my independent interpretation chest x-ray shows: No acute cardiopulmonary process Per my independent interpretation EKG shows: Normal sinus rhythm at a rate of 93 with first-degree AV block and a PA interval of 222 ms. Normal axis. QTc within normal limits. No acute injury pattern. T wave flattening in aVL. No prior for comparison. ]Medications: Atorvastatin Social determinants of health affecting disposition: N/A Management discussed with: Neurologist and hospitalist Treatment/interventions considered: N/A Response to therapies provided: Improved symptoms without intervention HPI This is a 73-year-old female with history of hypertension and hyperlipidemia arriving to the emergency department via private vehicle in setting of left- sided weakness that began approximately 30 minutes ago. Patient has a who is a recently retired pharmacist who advised 325 mg of aspirin which the patient took. Patient reports her numbness was on her complete left side. She did not take any falls. No weakness. No difficulty swallowing or speaking. No fevers. No chest pain. Exam General: Well-appearing in no acute distress speaking in complete sentences. Head: Normocephalic, atraumatic. Eye:[Pupils equal, round reactive to light.] Extraocular eye movements intact. No conjunctival injection. No scleral icterus. Ear, nose, mouth, throat: Grossly normal inspection. Normal voice, handling secretions normally. Neck: Trachea midline. Cardiovascular: Well-perfused distal extremities. Regular rate and rhythm. Respiratory: Nonlabored respiration. Clear lungs bilaterally. Gastrointestinal: Nondistended abdomen. Musculoskeletal: No edema. Moving all 4 extremities spontaneously. Skin: Normal for age and race, grossly normal temperature and turgor. No acute rash. Neurologic: Alert and appropriate, no apparent acute deficits beyond mild left- sided blunting of nasolabial fold. GCS 15. 5 out of 5 bilateral upper and lower extremity strength. No pronator drift. Please see neuronote for complete NIH stroke scale. Psychiatric: Mood and manner are appropriate. Grooming and personal hygiene are appropriate. Related Data Home Medications Medication Instructions Recorded Confirmed Spacer For Meds 12/14/12 01/24/24 famciclovir 500 mg tablet 500 mg PO TID 12/14/12 01/24/24 levalbuterol tartrate 45 2 puff inhalation Q4H PRN 12/14/12 01/24/24 mcg/actuation aerosol inhaler (Xopenex HFA) acetaminophen 500 mg tablet 500 mg PO TID 05/18/13 01/24/24 (Acetaminophen Extra Strength) famotidine 20 mg tablet 20 mg PO HS 05/18/13 01/24/24 gyssjilg-fqz-diryb acid 0.4 1 ea PO DAILY 05/18/13 01/24/24 mg-lycopene 300 mcg-lutein 250 mcg tablet ([employer]) Allergies Allergy/AdvReac Type Severity Reaction Status Date / Time erythromycin base Allergy Intermediate Contraindic Verified 01/24/24 20:37 ated alcohol AdvReac Intermediate sneezing Verified 01/24/24 20:37 diphenhydramine AdvReac Intermediate Diarrhea Verified 01/24/24 20:37 Gadolinium-Containing AdvReac Intermediate Skin Rash Verified 01/24/24 20:37 Contrast Medi simvastatin AdvReac Intermediate weakness Verified 01/24/24 20:37 General Stated Complaint: GenMedical ANA: 3 Course Vital Signs Vital signs: Vital Signs Pulse 111 H 01/24/24 20:27 Respiratory Rate 20 01/24/24 20:27 Blood Pressure 154/130 H 01/24/24 20:27 Pulse Oximetry 98 01/24/24 20:27 Pulse 111 H 01/24/24 20:27 Respiratory Rate 20 01/24/24 20:27 Respiratory Effort Normal 01/24/24 20:34 Blood Pressure 154/130 H 01/24/24 20:27 Pulse Oximetry 98 01/24/24 20:27 Oxygen Delivery Method Room Air 01/24/24 20:27 Oxygen Flow Rate 0 01/24/24 20:27 Medical Decision Making Quality:SDOH Health Related Social Needs: No Data to Display PFSH All Active Problems (Updated 01/24/24 @ 22:57 by Adrián Bermudez MD) TIA (transient ischemic attack) (Acute) Left sided numbness (Acute) Sensory hearing loss, bilateral (Acute) Tinnitus (Acute) Abnormal auditory perception (Acute) Adenoma of large intestine (Acute 03/07/13) colonoscopy 02/08 [facility] tubular adenoma Anxiety (Chronic) Hypertension (Chronic) Fibrocystic breast (Acute) Mastodynia (Acute) Raynauds syndrome (Acute) Polycystic ovarian disease (Acute) Thyroid nodule (Chronic) Thrombocytosis (Acute) Asthma (Chronic) Irritable colon (Chronic) Gastroesophageal reflux disease (Chronic) Osteoarthritis (Chronic) Hyperlipidemia (Chronic) Kidney stone (Chronic) Medical History Gall stone Cold sore Left flank pain LLQ abdominal pain Hx of ovarian cyst Surgical History 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 Social History Smoking/Tobacco Use Status: Former Tobacco Use Smoking risk assessment performed?: Yes Alcohol Intake: current Alcohol Intake frequency: a few times a month Alcohol type: beer Drug use: Never Substance use type: does not use Household members: spouse Housing: house Number of Children: 5 Sexually active: Yes Seatbelt use: always Helmet use: No Drive intox or ride w/intox 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
--- NOTE | 2024-01-24 21:03 | DI.VRAD_ITS ---
Addendum created by Jose Church MD on 01/24/2024 9:06:27 PM EDT: THIS REPORT CONTAINS FINDINGS THAT MAY BE CRITICAL TO PATIENT CARE. The findings were verbally communicated via telephone conference with CARMEN LOBO at 9:06 PM EDT on 01/24/2024. The findings were acknowledged and understood. Initial report created on 01/24/2024 9:02:58 PM EDT: PROCEDURE INFORMATION: Exam: CT Head Without Contrast Exam date and time: 01/24/2024 8:51 PM Age: 73 years old Clinical indication: Stroke-like symptoms; Other: L sided weakness weakness TECHNIQUE: Imaging protocol: Computed tomography of the head without contrast. Radiation optimization: All CT scans at this facility use at least one of these dose optimization techniques: automated exposure control; mA and/or kV adjustment per patient size (includes targeted exams where dose is matched to clinical indication); or iterative reconstruction. Other technique: STROKE PROTOCOL was implemented. COMPARISON: US THYROID 11/04/2021 1:44 PM FINDINGS: Brain: Cerebral sulci show bilateral symmetry with no supratentorial mass or mass effect detected. Brainstem and cerebellum are unremarkable. There is no evidence of acute transcortical infarction or recent intracranial hemorrhage. Cerebral ventricles: Ventricular and cisternal spaces are normal in size and configuration and there is no midline shift or hydrocephalus seen. Paranasal sinuses: Minimal lobular mucosal densities are seen along the base of the right maxillary sinus posteriorly with other paranasal sinuses grossly clear throughout. Mastoid air cells: Grossly clear bilaterally. Bones: Bony calvarium and skull base are intact and no acute fractures are detected. Soft tissues: Unremarkable. IMPRESSION: No evidence of acute transcortical infarction, recent intracranial hemorrhage or hydrocephalus. No acute intracranial process is detected. ASSESSMENT: ASPECTS ([place] Stroke Program Early CT Score) is 10. Dictated and Authenticated by: Jose Church MD. Ordering:JUDY Brooks MD
[2024-01-24 21:11] LABS: Abs Immature Grans 0.02 10^3/uL (0.0-0.06); Absolute Basophil Count 0.15 10^3/uL (0.0-0.2); Absolute Eosinophil Count 0.62 10^3/uL (0.0-0.7); Absolute Monocyte Count 1.08 10^3/uL (0.1-0.8); Basophils % 1.3 %; Eosinophils % 5.2 %; HCT 44.9 % (36.0-46.0); Immature Grans % 0.2 %; Lymphocytes % 41.2 %; MCH 31.8 pg (27.0-33.0); MCHC 33.4 % (32.0-36.0); MCV 95 fL (80-95); MPV 8.9 fL (8.0-11.0); Monocytes % 9.1 %; Platelet Count 438 10^3/uL (130-400); RBC 4.71 10^6/uL (3.93-5.22); RDW 14.8 % (11.7-14.6); RDW-SD 52.1 fL
[2024-01-24 21:16] LABS: Absolute Neutrophil Count 5.12 10^3/uL (1.2-6.7)
--- NOTE | 2024-01-24 21:30 | DI.CT_ITS ---
Exam(s) CT BRAIN NECK CTA EXAM: CT BRAIN NECK CTA CLINICAL HISTORY: Left numbness. TECHNIQUE: Imaging Protocol: Axial CT angiography was performed with multi-slice acquisition and mu lti-planar and MIP reconstructions. CONTRAST MATERIAL: Intravenous: Omnipaque 350 Contrast volume:85 ml COMPARISON: CT CT ABDOMEN PELVIS W from 05/28/2021 FINDINGS: CT Head W contrast: Ventricles and Extra axial spaces: Normal in size and morphology for the patient's age. Hemorrhage: None. Cerebral parenchyma: No evidence of acute infarct or mass. Midline shift: None. Brainstem/Cerebellum: No acute findings.. Calvarium: Normal. Visualized Paranasal sinuses/Mastoids: Minimal mucous retention at the floor of the right maxillary s inus. Soft Tissues: Unremarkable. Enhancement: Normal. CTA Brain W: Internal Carotid Arteries: Petrous: Normal. Cavernous: Minimal calcification. No significant stenosis. Cerebral: Normal. Middle Cerebral Arteries: Right: No aneurysm, occlusion or significant stenosis. Left: No aneurysm, occlusion or significant stenosis. Anterior Cerebral Arteries: Right: No aneurysm, occlusion or significant stenosis. Left: No aneurysm, occlusion or significant stenosis. Posterior cerebral Arteries: Right: No aneurysm, occlusion or significant stenosis. Left: No aneurysm, occlusion or significant stenosis. Vertebral Arteries: Right: No aneurysm, occlusion or significant stenosis. Left: No aneurysm, occlusion or significant stenosis. Basilar Artery: No aneurysm, occlusion or significant stenosis. CTA Neck W: Common Carotid: No visible plaque. Right: No dissection, occlusion or significant stenosis. Left: No dissection, occlusion or significant stenosis. External Carotid: Right: No dissection, occlusion or significant stenosis. Left: No dissection, occlusion or significant stenosis. Internal Carotid: No visible plaque. Right: No dissection, occlusion or significant stenosis. Left: No dissection, occlusion or significant stenosis. Vertebral Artery: No visible plaque or calcifications. Right: No dissection, occlusion or significant stenosis. Left: No dissection, occlusion or significant stenosis. Lung Apices: No acute findings. Bones: No acute abnormality. Degenerative changes in the cervical spine. Soft Tissues: Normal. IMPRESSION: 1. CTA brain: Normal CTA examination of the [place]. 2. Head CT: Unremarkable CT Head. 3. CTA neck: Normal CTA examination of the neck. RADIATION DOSE DELIVERED: 1,228.14mGy.cm Total DLP DATA REPOSITORY: All CT scans at this facility are submitted to the National Radiology Data Registry (NRDR) Dose Index Registry (DIR) with the [employer] (ACR). RADIATION OPTIMIZATION: All CT scans at this facility use at least one of these dose optimization te chniques: automated exposure control; mA and/or kV adjustment per patient size (includes targeted exa ms where dose is matched to clinical indication); or iterative reconstruction.
--- NOTE | 2024-01-24 21:45 | DI.VRAD_ITS ---
PROCEDURE INFORMATION: Exam: XR Chest Exam date and time: 01/24/2024 8:57 PM Age: 73 years old Clinical indication: Other: Weakness TECHNIQUE: Imaging protocol: Radiologic exam of the chest. Views: 1 view. COMPARISON: CT ABDOMEN PELVIS W 05/28/2021 2:04 PM FINDINGS: Lungs: Lungs are clear throughout with no mass or consolidation detected. Pleural spaces: No pneumothorax or pleural effusion detected. Heart/Mediastinum: Heart size is normal and vessel margins are sharply defined. Bones/joints: No acute osseous lesions are detected. IMPRESSION: No acute findings. Dictated and Authenticated by: Jose Church MD. Ordering:JUDY Brooks MD
[2024-01-24] MEDS: Atorvastatin 40 MG TAB 80 MG PO (21:47)
[2024-01-24] MEDS: Omnipaque 350 MG/ML 100 ML BTL IJ (22:10)
[2024-01-24] MEDS: Normal Saline - Diluent 50 ML VIAL IJ (22:17)
[2024-01-24 22:33] LABS: Anion Gap 8.9 mmol/L (3-11); BUN 17 mg/dL (7-18); CO2 27.1 mmol/L (21.0-32.0); CREATININE 0.9 mg/dL (0.55-1.02); Calcium 9.1 mg/dL (8.5-10.1); Chloride 104 mmol/L (98-107); Glucose 112 mg/dL (74-106); Sodium 140 mmol/L (136-145); Troponin I < 50 ng/L (< or =60)
--- NOTE | 2024-01-24 22:45 | DI.VRAD_ITS ---
PROCEDURE INFORMATION: Exam: CTA Head With Contrast, Arteriography Exam date and time: 01/24/2024 10:19 PM Age: 73 years old Clinical indication: Stroke-like symptoms; Generalized and other: Left sided weakness TECHNIQUE: Imaging protocol: Computed tomographic angiography of the head with contrast. Exam focused on the arteries. 3D rendering (Not supervised by radiologist): MIP and/or 3D reconstructed images were created by the technologist. Contrast material: OMNIPAQUE 350; Contrast volume: 85 ml; Contrast route: INTRAVENOUS (IV); COMPARISON: CT HEAD - STROKE PROTOCOL 01/24/2024 8:51 PM FINDINGS: ANTERIOR CIRCULATION: Right internal carotid artery: Calcified atheromas in the cavernous right ICA but no significant stenosis. Right middle cerebral artery: No occlusion or significant stenosis. No aneurysm. Right anterior cerebral artery: No occlusion or significant stenosis. No aneurysm. Left internal carotid artery: Intracranial segment is patent with no significant stenosis. No aneurysm. Left middle cerebral artery: No occlusion or significant stenosis. No aneurysm. Left anterior cerebral artery: No occlusion or significant stenosis. No aneurysm. POSTERIOR CIRCULATION: Right vertebral artery: No occlusion or significant stenosis. No aneurysm. Left vertebral artery: No occlusion or significant stenosis. No aneurysm. Basilar artery: No occlusion or significant stenosis. No aneurysm. Right posterior cerebral artery: No occlusion or significant stenosis. No aneurysm. Left posterior cerebral artery: No occlusion or significant stenosis. No aneurysm. Brain: No definite mass, mass effect, or midline shift. Cerebral ventricles: No ventriculomegaly. Pituitary gland and sella: Partially empty sella. Bones/joints: Unremarkable. No acute fracture. Soft tissues: Unremarkable. IMPRESSION: No large vessel occlusion. PROCEDURE INFORMATION: Exam: CTA Neck With Contrast Exam date and time: 01/24/2024 10:19 PM Age: 73 years old Clinical indication: Stroke-like symptoms; Generalized and other: Left sided weakness TECHNIQUE: Imaging protocol: Computed tomographic angiography of the neck with contrast. Exam focused on the cervical segments of the vasculature. 3D rendering (Not supervised by radiologist): MIP and/or 3D reconstructed images were created by the technologist. Contrast material: OMNIPAQUE 350; Contrast volume: 85 ml; Contrast route: INTRAVENOUS (IV); COMPARISON: CT HEAD - STROKE PROTOCOL 01/24/2024 8:51 PM FINDINGS: Right common carotid artery: No stenosis. No dissection or occlusion. Right internal carotid artery: No stenosis of the extracranial segment. No dissection or occlusion. Right external carotid artery: No occlusion or stenosis of the origin. Left common carotid artery: No stenosis. No dissection or occlusion. Left internal carotid artery: No stenosis of the extracranial segment. No dissection or occlusion. Left external carotid artery: No occlusion or stenosis of the origin. Right vertebral artery: No stenosis. No dissection or occlusion. Left vertebral artery: No stenosis. No dissection or occlusion. Thyroid: Multiple thyroid hypodense lesions measuring up to 1 cm in the right thyroid lobe. Lymph nodes: Partially calcified right level 3 subcentimeter lymph node. Soft tissues: Normal. No significant soft tissue swelling. Bones/joints: Mild to moderate degenerative disease of the cervical spine, most pronounced at C5-C6 and C6-C7 with anterior and posterior osteophyte disc complexes causing mild stenosis. Lungs: Atelectatic changes in bilateral lung apices. IMPRESSION: No significant stenosis. REFERENCES: NASCET CRITERIA. The degree of stenosis in the cervical segment of the internal carotid artery is based on NASCET criteria. Normal is no stenosis. Mild is less than 50% stenosis. Moderate is 50-69% stenosis. Severe is 70% to 99% stenosis. Total occlusion is no detectable patent lumen. Dictated and Authenticated by: Savage King MD. Ordering:JUDY Brooks MD
--- NOTE | 2024-01-24 22:47 | W.PM.HP.N ---
Date of service: 01/24/24 Time of Service: 22:47 Assessment and Plan Assessment and plan (1) TIA (transient ischemic attack): Status: Acute Assessment and plan: TIA: Will continue ASA and statin, monitor on tely and check cardiac U/S. Note BP slightly elevated. States she does not carry a diagnosis of HTN, will monitor, but regardless would maintain a degree of of permissive HTN if persists overnight in any case. History of Present Illness History of Present Illness Chief Complaint: transient numbness Narrative: 73 female here with sudden onset left sided numbness, occurred while she had raised her arms over her head while folding laundry. Lasted approx 30-45 minutes and has essentially resolved (she questions whether there might still be a minute area involving left malar eminence). Took ASA 325 at home. Here in ER w/u of note for normal neuro exam and negative head CT and CTA. Neuro consulted and advised add statin. I was asked to evaluate for admission. Review of Systems Narrative: per HPI PFSH All Active Problems (Updated 01/24/24 @ 22:57 by Adrián Bermudez MD) TIA (transient ischemic attack) (Acute) Left sided numbness (Acute) Sensory hearing loss, bilateral (Acute) Tinnitus (Acute) Abnormal auditory perception (Acute) Adenoma of large intestine (Acute 03/07/13) colonoscopy 02/08 [facility] tubular adenoma Anxiety (Chronic) Hypertension (Chronic) Fibrocystic breast (Acute) Mastodynia (Acute) Raynauds syndrome (Acute) Polycystic ovarian disease (Acute) Thyroid nodule (Chronic) Thrombocytosis (Acute) Asthma (Chronic) Irritable colon (Chronic) Gastroesophageal reflux disease (Chronic) Osteoarthritis (Chronic) Hyperlipidemia (Chronic) Kidney stone (Chronic) Medical History Gall stone Cold sore Left flank pain LLQ abdominal pain Hx of ovarian cyst Surgical History 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 Social History Smoking/Tobacco Use Status: Former Tobacco Use Smoking risk assessment performed?: Yes Alcohol Intake: current Alcohol Intake frequency: a few times a month Alcohol type: beer Drug use: Never Substance use type: does not use Household members: spouse Number of Children: 5 Sexually active: Yes Seatbelt use: always Helmet use: No Drive intox or ride w/intox 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 Female Reproductive History Menstrual Menopause type: natural History History 5 Para Hx # Term Pregnancies 4 Multiple births Hx # Pregnancies Ectopic pregnancies AB induced Hx Number of Living Children AB spontaneous Meds Allergies and Home Medications Allergies Allergy/AdvReac Type Severity Reaction Status Date / Time erythromycin base Allergy Intermediate Contraindic Verified 01/24/24 20:37 ated alcohol AdvReac Intermediate sneezing Verified 01/24/24 20:37 diphenhydramine AdvReac Intermediate Diarrhea Verified 01/24/24 20:37 Gadolinium-Containing AdvReac Intermediate Skin Rash Verified 01/24/24 20:37 Contrast Medi simvastatin AdvReac Intermediate weakness Verified 01/24/24 20:37 Home Medications Medication Instructions Recorded Confirmed Type Spacer For Meds 12/14/12 01/24/24 History famciclovir 500 mg tablet 500 mg PO TID 12/14/12 01/24/24 History levalbuterol tartrate 45 2 puff inhalation Q4H PRN 12/14/12 01/24/24 History mcg/actuation aerosol inhaler (Xopenex HFA) acetaminophen 500 mg tablet 500 mg PO TID 05/18/13 01/24/24 History (Acetaminophen Extra Strength) famotidine 20 mg tablet 20 mg PO HS 05/18/13 01/24/24 History slbdsjxy-exf-xxtwa acid 0.4 1 ea PO DAILY 05/18/13 01/24/24 History mg-lycopene 300 mcg-lutein 250 mcg tablet ([employer]) Exam Narrative Exam Narrative: 151/74, 83, 36.4, 15, 98% RA. HEENT atraumatic; neck supple w/o bruit; lungs clear; heart RRR w/o MRG; abdomen soft and NT; extremities w/o edema; neuro Ox3, CN EOMI, PERRL, painter full, no facial asymmetry, tongue midline; motor 5/5 prox/distal, UE/LE; sensory intact light touch; toes downgoing Results Labs 01/24/24 21:05 01/24/24 22:00 Labs: Laboratory Results - last 24 hr 01/24/24 01/24/24 21:05 22:00 WBC 11.90 H RBC 4.71 Hgb 15.0 Hct 44.9 MCV 95 MCH 31.8 MCHC 33.4 RDW 14.8 H Plt Count 438 H MPV 8.9 Immature Gran % 0.2 Neutrophils % 43.0 Lymphocytes % 41.2 Monocytes % 9.1 Eosinophils % 5.2 Basophils % 1.3 Nucleated RBC % 0.0 Absolute Neutrophils 5.12 Absolute Lymphocytes 4.90 H Absolute Monocytes 1.08 H Absolute Eosinophils 0.62 Absolute Basophils 0.15 Sodium Cancelled 140 Potassium Cancelled 4.0 Chloride Cancelled 104 Carbon Dioxide Cancelled 27.1 Anion Gap Cancelled 8.9 BUN Cancelled 17 Creatinine Cancelled 0.9 Est GFR (CKD-EPI 2020) Cancelled 67.50 Glucose Cancelled 112 H Calcium Cancelled 9.1 Troponin I Cancelled < 50 Last Vital Signs Temp 36.4 C 01/24/24 21:24 Pulse 83 01/24/24 22:01 Resp 15 01/24/24 22:40 BP 151/74 H 01/24/24 22:01 Pulse Ox 98 01/24/24 21:02 Time Spent Time spent with Patient: 40-54 minutes Time was spent: preparing to see the patient(eg.review tests), obtaining and/or reviewing separately otained hiistory, ordering medications,tests, procedures, referring, communicating with other health career development coordinator/teacher and indepentently interpreting results
[2024-01-25 00:03] VITALS: PULSE 78
[2024-01-25 03:24] VITALS: BP 134/67; PULSE 74; RESP 19; TEMP 36.4; O2SAT 96
[2024-01-25 08:19] VITALS: BP 135/75; PULSE 69; RESP 17; TEMP 37; O2SAT 98
[2024-01-25] MEDS: Acetaminophen 500 MG TAB 1000 MG PO (08:38)
[2024-01-25] MEDS: Aspirin 81 MG CHEW PO (08:38)
--- NOTE | 2024-01-25 09:55 | W.PM.PROGNOT ---
Date of Service Date of service: 01/25/24 Time of Service: 09:55 Assessment and Plan Assessment and plan (1) TIA (transient ischemic attack): Status: Acute Assessment and plan: TIA: Will continue ASA and statin, monitor on tely and check cardiac U/S. Note BP slightly elevated. States she does not carry a diagnosis of HTN, will monitor, but regardless would maintain a degree of of permissive HTN if persists overnight in any case. Exam Narrative Exam Narrative: Constitutional The patient is sitting in chair/ lying in bed comfortable and cooperative during the interview. The patient is well groomed without acute distress and has average body habitus/is obese/ is thin. HENMT: Head is atraumatic, normocephalic, no lymphadenopathy. Facial structures with normal appearance Eyes: Well aligned, intact ROM Neck: Normal ROM, no meningeal signs Neuro:alert and oriented to self, person, place time and situation. No neurological focal deficit, PERRLA Chest:Chest is symmetrical and normal appearance Resp: Normal respiratory pattern, speaks in full sentences, unlabored breathing, clear lung bilaterally Cardio: regular rhythm, S1, S2, no murmur, capillary refill<3 sec., bilateral radial and dorsalis pedis pulses are positive, palpable GI: Abdomen is not distended, soft and non tender, bowel sounds are present : Negative Costovertebral angle tenderness, no bladder distension Back/spine/Pelvis: No back tenderness, normal alignment Integumentary: No skin lesions or rash Extremities: strength 5/5 to bilateral lower and upper extremities Psych: RASS 0, congruent mood and normal affect. Objective Last Vital Signs Temp 37.0 C 01/25/24 08:19 Pulse 69 01/25/24 08:19 Resp 17 01/25/24 08:19 BP 135/75 01/25/24 08:19 Pulse Ox 98 01/25/24 08:19 Laboratory Results - last 24 hr 01/24/24 01/24/24 21:05 22:00 WBC 11.90 H RBC 4.71 Hgb 15.0 Hct 44.9 MCV 95 MCH 31.8 MCHC 33.4 RDW 14.8 H Plt Count 438 H MPV 8.9 Immature Gran % 0.2 Neutrophils % 43.0 Lymphocytes % 41.2 Monocytes % 9.1 Eosinophils % 5.2 Basophils % 1.3 Nucleated RBC % 0.0 Absolute Neutrophils 5.12 Absolute Lymphocytes 4.90 H Absolute Monocytes 1.08 H Absolute Eosinophils 0.62 Absolute Basophils 0.15 Sodium Cancelled 140 Potassium Cancelled 4.0 Chloride Cancelled 104 Carbon Dioxide Cancelled 27.1 Anion Gap Cancelled 8.9 BUN Cancelled 17 Creatinine Cancelled 0.9 Est GFR (CKD-EPI 2020) Cancelled 67.50 Glucose Cancelled 112 H Calcium Cancelled 9.1 Troponin I Cancelled < 50 PAWSS Have you Been Recently Intoxicated or Drunk Within the Last 30 days?: No Have you Ever Experienced Previous Episodes of Alcohol Withdrawal?: No Have you ever Experienced Withdrawal Seizures?: No Have you ever Experienced Delirium Tremens(DT)s?: No Have you ever undergone Alcohol Rehabilitation Treatment (i.e, inpt ot outpatient treatment programs)?: No Have you ever Experienced Blackouts?: No Have you ever Combined Alcohol with other Downers within the last 90 days?: No Have you ever Combined Alcohol with any other Substance of Abuse during the last 90 days?: No Positive Blood Alcohol level on Presentation? [PCS.BAL]: No Evidence of Increased Autonomic Activity (i.e. HR>120, tremor, sweating, agitation, nausea)?: No Result: 0
--- NOTE | 2024-01-25 09:57 | PT.INIE ---
PT Notes Visit Reasons: TIA (cardiology) Physical Therapy Inpatient Initial Evaluation Date: 01/25/2024 Referring Doctor: Adrián Bermudez MD PT Orders: PT CONSULT: Safety consult for D/C Precautions: Fall. Standard. Activity as tolerated. Patient Profile/Admitting Diagnosis: This is a 73-year-old right hand-dominant female who presented to the ED on 01/24/2024 due to numbness in her left lower lip, left upper extremity and left thigh that lasted for about 30 to 45 minutes whiile she was folding laundry at home. Patient is admitted for management of TIA and additional CVA work up. PMHX: All Active Problems (Updated 01/24/24 @ 22:57 by Adrián Bermudez MD) TIA (transient ischemic attack) (Acute) Left sided numbness (Acute) Sensory hearing loss, bilateral (Acute) Tinnitus (Acute) Abnormal auditory perception (Acute) Adenoma of large intestine (Acute 03/07/13) colonoscopy 02/08 [facility] tubular adenoma Anxiety (Chronic) Hypertension (Chronic) Fibrocystic breast (Acute) Mastodynia (Acute) Raynauds syndrome (Acute) Polycystic ovarian disease (Acute) Thyroid nodule (Chronic) Thrombocytosis (Acute) Asthma (Chronic) Irritable colon (Chronic) Gastroesophageal reflux disease (Chronic) Osteoarthritis (Chronic) Hyperlipidemia (Chronic) Kidney stone (Chronic) Medical History Gall stone Cold sore Left flank pain LLQ abdominal pain Hx of ovarian cyst Surgical History 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 Independent with all aspects of ADLs prior to surgery. Still drives. No falls in the past year. Equipment Owned/DME: None Subjective: Verbalized that numbness in lip, L arm, and L thigh have resolved. Reported headache early this morning, Nurse Kymberly aware and managing. denied chest pain and lightheadedness throughout session. Added that her BP was unually high when she came in at the ED yesterday. Objective: General Observation: Resting in bed. Telemetry monitoring in place. No facial asymmetry seen. Mental Status: Alert and oriented as to person, place, time, and purpose. Able to pay attention, focus, and respond appropriately. Pain: Minor headache that started to resolve before PT started Vital Signs: WNL as closely monitored by nursing staff ROM: Right Upper Extremity: Shoulder Flexion WFL. Shoulder abduction WFL. Elbow flexion WFL. Wrist flexion WFL. Functional opening and closing of hand WFL. Left Upper Extremity: Shoulder Flexion WFL. Shoulder abduction WFL. Elbow flexion WFL. Wrist flexion WFL. Functional opening and closing of hand WFL. Right Lower Extremity: Hip flexion WFL. Hip abduction WFL. Knee flexion WFL. Ankle dorsiflexion WFL. Ankle plantarflexion WFL. Left Lower Extremity: Hip flexion WFL. Hip abduction WFL. Knee flexion WFL. Ankle dorsiflexion WFL. Ankle plantarflexion WFL. Strength: Right Upper Extremity: Shoulder flexors 4/5. Shoulder abductors 4/5. Elbow flexors 5/5. Elbow extensors 5/5. Screen Printing Press Operator strong. Left Upper Extremity: Shoulder flexors 4/5. Shoulder abductors 4/5. Elbow flexors 5/5. Elbow extensors 5/5. Screen Printing Press Operator strong. Right Lower Extremity: Hip flexors 4-/5. Hip abductors 4/5. Knee flexors 5/5. Knee extensors 4/5. Ankle dorsiflexors 4-/5. Ankle plantarflexors 4-/5. Left Lower Extremity: Hip flexors 4-/5. Hip abductors 4/5. Knee flexors 5/5. Knee extensors 4/5. Ankle dorsiflexors 4-/5. Ankle plantarflexors 4-/5. Bed Mobility/Transfers: Minimal cueing provided for use of B hands as needed for support, movement sequence, AD management, and posture to reduce fall risk and minimize pain report Supine to sit independent Sit to supine independent Sit to stand independent Stand to sit independent Bed to reclining chair stand by assist with no AD Reclining chair to bed stand by assist with no AD Gait: Facilitated safe and correct perform negotiation of level surface covering a distance of 300 feet with no assistive device requiring only standby assist of PT. Minimal path deviation but no SOB nor I will be seen. Balance: Static Sitting: Normal Dynamic Sitting: Normal Static Standing: Good Dynamic Standing: Fair Special Tests: Mobility Limitations Standardized Measure [facility] 6 clicks Basic Mobility Inpatient Short Form: Raw Score: 23 CMS Score: 11% deficit 30-Second chair rise score: 15x 4-Stage Balance Test: Feet together 10 seconds, semi-tandem 10 seconds, full tandem <10 seconds, one legged stance < 10 seconds Rapid alternating movement: Intact Pronator Drift: Negative Informed Consent/Education: Patient was instructed in purpose of PT consult and plan of care. Agreeable to proceed with established PT POC to achieve personal goals. Assessment: B UE/LE strength symmetric except for the R hip which has a joint prosthesis. Numbness resolved in L UE/LE and L lower lip. Nearly at baseline mobility level except for a new onset L ankle dorsiflexion awkwardness/weakness that patient does not remember feeling before. Will continue to monitor with plan of 1-2 more sessions for continued functional mobility retraining and HEP instruction. Patient presents with clinical signs and symptoms consistent with current/admitting diagnoses that have resulted to mobility limitations, gait instability, generalized weakness, and overall ADL decline as demonstrated by the following impairment level findings: 1. Minimal reduction in L dorsiflexion 2. Impaired standing balance 3. Impaired activity toleranc Impairments are contributing to the following functional limitations: 1. Increased completion time for mobility ADL performance 2. Increased risk for falls 3. Difficulty with managing steps alone safely Patient is assessed as a 19373 moderate complexity based on the following: History: 73-year-old female with past medical history as indicated above Examination: Demonstrable impairment in strength, balance, and mobility level with underlying impairments and functional limitations as exhibited above as well as deficit score of % utilizing the [facility] Mobility Inpatient Short Form Presentation: Evolving Decision Makin moderate complexity Goals: Goals X1 week 1. Supine-Sit independent 2. Sit-Supine independent 3. Sit-Stand independent 4. Stand-Sit independent with no AD 5. Bed-Chair independent with no AD 6. Chair-Bed independent with no AD 7. Independent gait on level surface with use of no AD for at least 300 feet without report of pain nor dyspnea 8. Independent stair negotiation while holding onto 1 rail for at least 2 steps without report of pain nor dyspnea 9. Independent with home exercise program 10. Good static and dynamic standing balance/tolerance Plan of Care/Treatment Plan: 1-2x/day, 7 days/week x 1 week. Plan of care has been reviewed with the CONTRACT NEGOTIATION MANAGER providing the service under Physical Therapy direction. Initiate Physical Therapy intervention for pain management as needed, strengthening, bed mobility, transfers, gait, stairs, and balance training. -Do one-two more sessions for functional mobility training and HEP instructions. DISCHARGE RECOMMENDATIONS: [] Home with no services [] [X] Home with services. Patient will benefit from home health PT services in order to assess home safety and establish a functional maintenance program that will increase ability of patient to remain at home. [] Home with outpatient PT [] [] SNF for continued rehabilitation [] [] [employer] [facility] [] [] SNF versus LTC based on ability to participate and progress [] TREATMENT CODE/TIME: 9716 2 x 15 minutes for 1 unit (9:57-10:12). Thank you for the opportunity to participate in the care of this patient. Sherley Olson PT, DPT, CLT [facility] [place], [place]
[2024-01-25 11:26] VITALS: BP 134/71; PULSE 67; RESP 18; TEMP 36.5; O2SAT 96
[2024-01-25 13:21] LABS: Abs Immature Grans 0.01 10^3/uL (0.0-0.06); Absolute Basophil Count 0.12 10^3/uL (0.0-0.2); Absolute Eosinophil Count 0.43 10^3/uL (0.0-0.7); Absolute Lymphocyte Count 2.94 10^3/uL (1.2-3.4); Absolute Monocyte Count 0.62 10^3/uL (0.1-0.8); Absolute Neutrophil Count 3.49 10^3/uL (1.2-6.7); Basophils % 1.6 %; Eosinophils % 5.7 %; HCT 40.6 % (36.0-46.0); HGB 13.7 g/dL (11.2-15.7); Immature Grans % 0.1 %; Lymphocytes % 38.6 %; MCHC 33.7 % (32.0-36.0); MCV 95 fL (80-95); MPV 9.1 fL (8.0-11.0); Monocytes % 8.1 %; Neutrophils % 45.9 %; Platelet Count 429 10^3/uL (130-400); RBC 4.28 10^6/uL (3.93-5.22); RDW-SD 52.3 fL; WBC 7.61 10^3/uL (4.4-10.8)
[2024-01-25 13:29] LABS: Anion Gap 10.3 mmol/L (3-11); BUN 13 mg/dL (7-18); CO2 25.7 mmol/L (21.0-32.0); CREATININE 0.8 mg/dL (0.55-1.02); Calcium 8.6 mg/dL (8.5-10.1); Chloride 104 mmol/L (98-107); Estimated GFR 77.75 (mL/min/1.73m2); Glucose 156 mg/dL (74-106); Potassium 3.9 mmol/L (3.5-5.1); Sodium 140 mmol/L (136-145)
--- NOTE | 2024-01-25 14:56 | PHA.REVIEW2 ---
Pharmacy Admission Review Admission Clinical Review Admission Pharmacy Review: TIA (transient ischemic attack) (Acute) Left sided numbness (Acute) erythromycin base Allergy (Intermediate, Verified 01/24/24 20:37) Contraindicated alcohol Adverse Reaction (Intermediate, Verified 01/24/24 20:37) sneezing diphenhydramine Adverse Reaction (Intermediate, Verified 01/24/24 20:37) Diarrhea Gadolinium-Containing Contrast Medi Adverse Reaction (Intermediate, Verified 01/24/24 20:37) Skin Rash simvastatin Adverse Reaction (Intermediate, Verified 01/24/24 20:37) weakness Resuscitation Status Full Code Height 5 ft 1 in Weight 75.75 kg Pharmacy Admission Review Renal Dosing Renal Dosing: BUN 13 mg/dL (7-18) 01/25/24 13:04 Creatinine 0.8 mg/dL (0.55-1.02) 01/25/24 13:04 Medications needing adjustments: Reviewed (CrCl 46.65 mL/min) List of meds needing interventions: Current medications are okay Anticoagulation Anticoagulation: Hgb 13.7 g/dL (11.2-15.7) 01/25/24 13:04 Hct 40.6 % (36.0-46.0) 01/25/24 13:04 Plt Count 429 10^3/uL (130-400) H 01/25/24 13:04 Creatinine 0.8 mg/dL (0.55-1.02) 01/25/24 13:04 DVT Prophylaxis: Intervened (None at this time - reached out to provider) Relevant Labs Relevant Labs: Sodium 140 mmol/L (136-145) 01/25/24 13:04 Potassium 3.9 mmol/L (3.5-5.1) 01/25/24 13:04 Chloride 104 mmol/L (98-107) 01/25/24 13:04 Electrolytes, C-Reactive P, ESR: Reviewed (WBC decreased from 11.9 to 7.61, PLT count decreased from 438 to 429, glucose 156) Cardiac Review Cardiac Review: Troponin I < 50 ng/L (< or =60) 01/24/24 22:00 BP, HR, EF%: Reviewed (BP/HR WNL) QTc Review QTc: Reviewed (478 from 01/24/24) IV to PO Switch IV Medications: Reviewed Home Meds Home Med List reviewed: Reviewed Relevent Home Meds Not ordered & why?: No fill history since July Current Meds Current Medication Order Review: Reviewed
--- NOTE | 2024-01-25 15:25 | DI.MRI_ITS ---
Exam(s) MR BRAIN WO EXAM: MR BRAIN WO CLINICAL HISTORY: Left-sided weakness TECHNIQUE: Multiplanar multisequence MRI of the brain was performed. COMPARISON: CT CT BRAIN NECK CTA from 01/24/2024 FINDINGS: VENTRICLES AND EXTRA AXIAL SPACES: Normal in size and morphology for the patient's age. MIDLINE SHIFT: None. CEREBRAL PARENCHYMA: No focus of restricted diffusion to suggest acute infarct. No space-occupying le twan identified. Mild atrophy consistent with the patient's age. Mild scattered foci of high signal in the white matter consistent with sequela of chronic microvascular disease. HEMORRHAGE: None. BRAINSTEM/CEREBELLUM: Normal. VISUALIZED PARANASAL SINUSES/MASTOIDS:Clear. Vasculature: Normal flow void. PITUITARY GLAND: Unremarkable. ORBITS: Unremarkable. IMPRESSION: No evidence of acute infarct. Roughly symmetric [id number] bilateral white matter changes consistent with chronic microvascul ar disease. DATA REPOSITORY:
--- NOTE | 2024-01-25 15:36 | NUR.NOTE ---
Pt back from MRI and ECHO Nursing Note:
[2024-01-25 15:37] VITALS: BP 131/73; PULSE 61; RESP 16; TEMP 36.2; O2SAT 100
--- NOTE | 2024-01-25 16:03 | DSE_ITS ---
Date of service: 01/25/24 Time of Service: 16:03 DS: Diagnosis Discharge Diagnosis (1) TIA (transient ischemic attack): Status: Acute Discharge Plan Disposition Patient Disposition: Home Condition: Good Discharge Details Reason For Visit: TIA Admit Date/Time: 01/24/24 23:00 Admit Provider: Adrián Bermudez Attending Provider: Adrián Bermudez [facility] Hospital Course: This 72-year-old female patient with a past medical history of hypertension, hyperlipidemia presented to the emergency room and evaluated on 01/24/2024 via private vehicle for evaluation of left-sided weakness beginning around 30 minutes prior to arrival. The patient's former pharmacist advised her to take aspirin 325 prior to arrival. The patient at the time denied history of fall, weakness, difficulty swallowing or speaking. ED labs were unremarkable except for improved thrombocytosis and leukocytosis. Workup in the emergency room for TIA versus CVA showed a negative head CT for bleed. The EKG showed first-degree AV block with a CO interval of 2 2 2 ms, without signs of ischemia. Consultation with Dr. Prabhakar from neurology at [facility] resulted in recommendation for a CT a head and neck to assess for dissection, echo with bubble study and MRI. The patient was started on atorvastatin 80 mg and aspirin 81 mg. Plavix was not recommended at the time. Head neck CTA showed normal circulation in the [place], and a normal examination of the neck. There was no evidence of occlusion, significant stenosis, aneurysm, no definite mass or mass effect, no midline shift. The hospitalist was contacted and patient admitted overnight to the medical surgical floor for MRI and echo with bubble study in the setting of TIA versus CVA. The MRI showed no evidence of acute infarct but roughly symmetric mild to moderate bilateral white matter changes consistent with chronic microvascular disease. Echo with bubble study study showed no interventricular septal defect and no patent foramen ovale (PFO). The left ventricular ejection fraction was 60% with normal left segmental wall motion. Lipid panel was normal. The patient had an hemoglobin A1c of 6.0 which point to prediabetes. The patient has been counseled in lifestyle modification and to further manage this risk factor with her primary care practitioner. The patient will be discharged home on Lipitor and aspirin with outpatient management as per her primary care practitioner. The patient should follow-up with the primary care practitioner within 7 days of discharge.The patient will have a CMP prior to seeing her primary care practitioner. Discussed with Dr. House Home Meds and New Rx's Prescriptions: New aspirin 81 mg tablet,delayed release (DR/EC) 81 mg PO DAILY Qty: 30 0RF atorvastatin [Lipitor] 40 mg tablet 40 mg PO QHS Qty: 30 0RF Continued famciclovir 500 MG tablet 500 mg PO TID levalbuterol tartrate [Xopenex HFA] 15 GM HFA aerosol inhaler 2 puff Inhalation Q4H PRN Rx Instructions: OR DIRECTED FOR BREATHING PROBLEMS (DME) SPACER FOR MEDS See Rx Instructions .Route .MEDSUPPLY Rx Instructions: USE WITH INHALED MEDICATIONS Century Mature 1 EACH tablet 1 ea PO DAILY acetaminophen [Acetaminophen Extra Strength] 500 MG tablet 500 mg PO TID famotidine 20 MG tablet 20 mg PO HS Discharge Instructions Referrals: Todd Sosa [Primary Care Provider] - (F/u with PCP w/i 7 days ) Activity:: Activity as Tolerated Equipment/Supplies:: No Equipment Needed Diet:: heart healthy and low in concentrated surgars Discharge Orders Discharge Orders: Discharge Order (Routine); Ordered 01/25/24 Ordered By: Kamille Wooten Other Ambulatory Orders: Cardiac Event Recorder (Routine) Timeframe: 20240125 Facility: [facility] - Location: Respiratory Therapy Ordered By: Kamille Wooten Comprehensive Metabolic Panel (Routine) Timeframe: 20240201 Facility: [facility] - Location: Laboratory Outpatient - [facility] Ordered By: Kamille Wooten DS: Summary Time Spent with Patient providing and/or coordinating discharge services: Greater than 30 minutes Status at Discharge Functional status at discharge: independent ambulation Overall status at discharge: patient is back to baseline Mental Status: mental status grossly normal Speech and Movement: speech and movement normal Mood: congruent mood Affect: normal affect Quality:SDOH Health Related Social Needs: No Data to Display Exam Narrative Exam Narrative: Constitutional The patient is sitting in chair without acute distress and has average body habitus/is obese/ is thin. HENMT: Head is atraumatic, normocephalic, no lymphadenopathy. Facial structures with normal appearance Eyes: Well aligned, intact ROM Neck: Normal ROM, no meningeal signs Neuro:alert and oriented to self, person, place time and situation. No neurological focal deficit, PERRLA on ambient light Chest:Chest is symmetrical and normal appearance Resp: Normal respiratory pattern, speaks in full sentences, unlabored breathing, clear lung bilaterally Cardio: regular rhythm, S1, S2, no murmur, capillary refill<3 sec., bilateral radial and dorsalis pedis pulses are positive GI: Abdomen is not distended, soft and non tender, bowel sounds are present Extremities: strength 5/5 to bilateral lower and upper extremities Psych: RASS 0, congruent mood and normal affect. Psych Mental Status: mental status grossly normal Speech and Movement: speech and movement normal Mood: congruent mood Affect: normal affect DS: Data Vitals/I&O Vitals and I&O: Vital Signs Temperature 36.2 C L 01/25/24 15:37 Temperature Source Tympanic 01/25/24 15:37 Pulse 61 01/25/24 15:37 Pulse Rhythm Regular 01/25/24 08:40 Pulse 85 01/24/24 23:58 Respiratory Rate 16 01/25/24 15:37 Respiratory Effort Normal 01/25/24 08:40 Respiratory Depth Normal 01/25/24 08:40 Respiratory Pattern Normal 01/25/24 08:40 Blood Pressure 131/73 01/25/24 15:37 Blood Pressure Mean 87 01/24/24 23:45 Pulse Oximetry 100 01/25/24 15:37 Oxygen Delivery Method Room Air 01/25/24 15:37 Oxygen Flow Rate 0 01/25/24 15:37 Pain Level 0 01/25/24 15:37 Intake & Output 01/24/24 01/25/24 01/25/24 23:59 11:59 23:59 Intake Total 400 / 400 Output Total 500 / 500 Balance -100 / -100 Weight 74.843 kg 75.75 kg Intake: Oral 400 / 400 Output: Urine 500 / 500 Other: Urine Color Yellow Comment Independent. Independent to the bathroom. Voiding Methods Toilet Toilet Data Completed and Pending Labs on day of discharge: Labs from last 24 hours 01/25/24 01/24/24 01/24/24 13:04 22:00 21:05 WBC 7.61 11.90 H RBC 4.28 4.71 Hgb 13.7 15.0 Hct 40.6 44.9 MCV 95 95 MCH 32.0 31.8 MCHC 33.7 33.4 RDW 15.0 H 14.8 H Plt Count 429 H 438 H MPV 9.1 8.9 Immature Gran % 0.1 0.2 Neutrophils % 45.9 43.0 Lymphocytes % 38.6 41.2 Monocytes % 8.1 9.1 Eosinophils % 5.7 5.2 Basophils % 1.6 1.3 Nucleated RBC % 0.0 0.0 Absolute Neutrophils 3.49 5.12 Absolute Lymphocytes 2.94 4.90 H Absolute Monocytes 0.62 1.08 H Absolute Eosinophils 0.43 0.62 Absolute Basophils 0.12 0.15 Sodium 140 140 Cancelled Potassium 3.9 4.0 Cancelled Chloride 104 104 Cancelled Carbon Dioxide 25.7 27.1 Cancelled Anion Gap 10.3 8.9 Cancelled BUN 13 17 Cancelled Creatinine 0.8 0.9 Cancelled Est GFR (CKD-EPI 2020) 77.75 67.50 Cancelled Glucose 156 H 112 H Cancelled Calcium 8.6 9.1 Cancelled Troponin I < 50 Cancelled PFSH All Active Problems (Updated 01/25/24 @ 16:48 by Lizabeth Berkowitz NP) Palliative care encounter (Acute) TIA (transient ischemic attack) (Acute) Left sided numbness (Acute) Sensory hearing loss, bilateral (Acute) Tinnitus (Acute) Abnormal auditory perception (Acute) Adenoma of large intestine (Acute 03/07/13) colonoscopy 02/08 [facility] tubular adenoma Anxiety (Chronic) Hypertension (Chronic) Fibrocystic breast (Acute) Mastodynia (Acute) Raynauds syndrome (Acute) Polycystic ovarian disease (Acute) Thyroid nodule (Chronic) Thrombocytosis (Acute) Asthma (Chronic) Irritable colon (Chronic) Gastroesophageal reflux disease (Chronic) Osteoarthritis (Chronic) Hyperlipidemia (Chronic) Kidney stone (Chronic) Medical History Gall stone Cold sore Left flank pain LLQ abdominal pain Hx of ovarian cyst Surgical History 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 Social History Smoking/Tobacco Use Status: Former Tobacco Use Smoking risk assessment performed?: Yes Alcohol Intake: current Alcohol Intake frequency: a few times a month Alcohol type: beer Drug use: Never Substance use type: does not use Household members: spouse Housing: house Number of Children: 5 Sexually active: Yes Seatbelt use: always Helmet use: No Drive intox or ride w/intox spike driver: No Female Reproductive History Menstrual Menopause type: natural History History 5 Para Hx # Term Pregnancies 4 Multiple births Hx # Pregnancies Ectopic pregnancies AB induced Hx Number of Living Children AB spontaneous Time Spent with Patient Time Spent with Patient: 70-84 minutes4 Time was spent: preparing to see the patient(eg.review tests), obtaining and/or reviewing separately otained hiistory, ordering medications,tests, procedures, referring, communicating with other health pet caregiver, indepentently interpreting results, counseling the patient and care coordination
--- NOTE | 2024-01-25 16:04 | W.SPSTE ---
Date of service: 01/25/24 Time of Service: 16:04 Subjective Speech-Language Pathology Evaluation - Inpatient - Bedside Referred by: Adrián Bermudez Start time: 15:35 End time: 16:00 Total patient contact: 25 min Referral Type: Routine Swallow Consult Routine Cognitive-Communication Consult Precautions: Standard, Full Code Reason for Referral/HPI: Pamela is a 73 y/o F admitted for workup of sudden onset R sided numbness with concern for CVA/TIA. MRI results pending at time of CUSHION MAKER evaluation. Pamela reports she was folding laundry when she felt a tingling numbness in her L lip, spreading then to her tongue, jaw, L upper extremity and L lower extremity. She denies any speech changes or changes to cognition or word-finding difficulties. CUSHION MAKER IMPRESSIONS & RECOMMENDATIONS: Speech: WFL/baseline Swallow: WFL/baseline Cognition: WFL/baseline FURTHER INPATIENT CUSHION MAKER SERVICES: No further CUSHION MAKER services indicated DISCHARGE RECOMMENDATIONS: No further CUSHION MAKER services indicated/Please re-refer as needed Diet Recommendations: ? SOLIDS: 7-Regular Solids LIQUIDS: 0-Thin Liquids MEDICATIONS: As tolerated RISK MANAGEMENT: Level of Assistance/Supervision: Independent Provide set-up assist with initial verbal reminders for aspiration precautions as below Intermittent supervision for all PO intake Distant supervision for all PO intake 1:1 close supervision for all PO intake 1:1 distant supervision for all PO intake 1:1Assistive feeding only by trained staff/family 1:1 Assistive feeding only by CUSHION MAKER at this time Positioning and environment: PO intake only when awake/alert? Reduce auditory and/or visual distractions when eating [place] upright for all PO intake. Up to chair As upright as tolerated, use HOB controls/bed tilt to achieve upright positioning Oral hygiene BID/2x per day Q3-4h/every 3-4 hours Before/after PO intake Using friction with toothbrush on all oral structures as tolerated Using suction swab kits on all oral structures as tolerated Strategies/Adaptations/Assistive Equipment: Small sips Small bites Slow rate of intake Swallow between bites, Avoid straws Sips by straw only Multiple swallows Alternate intake of liquids and solids Finger or tongue sweep to reduce pocketing Ensure mouth is clear before proceeding Sensory enhancement (flavor, texture, temperature) Reflux Precautions: Small+frequent meals throughout day Maintain fully upright position at least 30 minutes after meals Avoid meals/snacks 2-3 hours prior to reclining/sleeping Sleep with head of bed elevated to reduce likelihood of nocturnal reflux Education Provided to: Patient Topics Addressed: impact of current diagnoses on swallow, cognitive, communication function role of CUSHION MAKER in management of swallow, speech, cognitive-communication disorders overt s/sx to monitor for re: potential aspiration of food / liquids, cognitive, or speech changes SUBJECTIVE: Patient received: alert/awake. Agreeable to evaluation. Pain Reported n/a Baseline Swallow Function: Patient denies swallowing difficulty prior to admission and eats a regular diet at baseline. Patient denies any speech or cognitive changes at baseline. She does endorse occasional slow processing speed during moments of stress/fatigue at baseline. 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 Speech: WFL (Speech AMR's & SMR's normal rate/rhythm/precision/coordination, 100% intelligible in conversation without evidence of discoordination or weak articulatory contacts). [facility] Mental Status Examination (UMS) Orientation: 3/3 Mental Math: 2/3 (3/3 with repetition) Generative Namin/3 Recall: 4/5 Reverse digit strings: 2/2 Clock Draw: 4/4 Visual Perception: 2/2 Story comprehension: 8 Total: 28/30 (Normal) Oral Mechanism Examination: WNL ? Cranial Nerve Assessment: CN V ? Trigeminal Facial Sensation WNL Jaw Strength/ROM WNL ?WNL CN VII- Facial WNL labial ROM, strength, coordination. WNL lingual sensation WNL CN IX ? Glossopharyngeal WNL palatal elevation with phonation. No evidence of nasal emissions WNL CN X ? Vagus WNL Vocal quality and volume. Strong/sharp volitional cough WNL CX XII ? Hypoglossal WNL lingual ROM, strength, coordination WNL ? [place] Swallow Protocol Results: PASS Complete/uninterrupted without s/sx aspiration PLAN: No further CUSHION MAKER services indicated at this time. Please re-refer as needed. [id number] Clinical Swallowing Evaluation - 10 min [id number]?Evaluation of speech sound production - 10 min
--- NOTE | 2024-01-25 16:12 | NUR.NOTE ---
Palliative in to discuss Advanced Directives. Nursing Note:
--- NOTE | 2024-01-25 16:41 | PCNE_ITS ---
Date of service: 01/25/24 Time of Service: 16:00 History of Present Illness Narrative: Mrs. Santiago is a 73-year-old female currently hospitalized at [facility] secondary to TIA; palliative care consult placed to review advance directives; present at time of visit Brody and [id number] [place] [facility] course: Presented to the emergency department on January 23 after acute onset left-sided numbness in home, took aspirin 325 mg prior to calling 911 per 's recommendation. Workup consistent with TIA, started on aspirin and statin, admitted inpatient for monitoring telemetry and follow cardiac ultrasound. Return to baseline per chart review this morning. PT consult recommends home with services. MRI and echocardiogram completed today, goal for discharge today once results read. Pamela lives in [facility] with Brody. He is a retired clinical pharmacist . Pamela is eager to get home, would like to continue visiting with family at this time. Would like to follow-up outpatient to review advance directives, something she is interested in continuing to pursue. She feels comfortable with presenting for an office visit with a Tuesday preference and would like to be contacted for scheduling in the next week or so Assessment and Plan Assessment and plan (1) TIA (transient ischemic attack): Status: Acute Assessment and plan: Returned to baseline, MRI pending Continue ASA and statin (2) Left sided numbness: Status: Acute Assessment and plan: Resolved (3) Hypertension: Status: Chronic Assessment and plan: Within normal limits per chart review (4) Palliative care encounter: Status: Acute Assessment and plan: PC will continue to follow-up as outpatient, will schedule office visit follow- up to review advance directives and ongoing care as needed Review of Systems Narrative: As per HPI PFSH All Active Problems (Updated 01/25/24 @ 16:48 by Lizabeth Berkowitz NP) Palliative care encounter (Acute) TIA (transient ischemic attack) (Acute) Left sided numbness (Acute) Sensory hearing loss, bilateral (Acute) Tinnitus (Acute) Abnormal auditory perception (Acute) Adenoma of large intestine (Acute 03/07/13) colonoscopy 02/08 Dr Albarran [facility] tubular adenoma Anxiety (Chronic) Hypertension (Chronic) Fibrocystic breast (Acute) Mastodynia (Acute) Raynauds syndrome (Acute) Polycystic ovarian disease (Acute) Thyroid nodule (Chronic) Thrombocytosis (Acute) Asthma (Chronic) Irritable colon (Chronic) Gastroesophageal reflux disease (Chronic) Osteoarthritis (Chronic) Hyperlipidemia (Chronic) Kidney stone (Chronic) Medical History Gall stone Cold sore Left flank pain LLQ abdominal pain Hx of ovarian cyst Surgical History 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 Social History Smoking/Tobacco Use Status: Former Tobacco Use Smoking risk assessment performed?: Yes Alcohol Intake: current Alcohol Intake frequency: a few times a month Alcohol type: beer Drug use: Never Substance use type: does not use Household members: spouse Housing: house Number of Children: 5 Sexually active: Yes Seatbelt use: always Helmet use: No Drive intox or ride w/intox motor pool driver: No Female Reproductive History Menstrual Menopause type: natural History History 2 5 Para Hx # Term Pregnancies 4 Multiple births Hx # Pregnancies Ectopic pregnancies AB induced Hx Number of Living Children AB spontaneous Exam Narrative Exam Narrative: General: 73-year-old female, sitting in recliner in hospital room, and [id number] at bedside HENT: hearing grossly WNL; normocephalic, atraumatic Resp:Even and unlabored, Able to speak full complete sentences with no shortness of breath. No audible wheeze, no cough Skin: RUE IV in place. skin appears WNL, did not conduct full skin exam Neuro: AAOx3; CN II-XI intact bilat Psych: cooperative, pleasant; thought process within normal limits; judgment insight good Results Last Vital Signs Temp 97.2 F L 01/25/24 15:37 Pulse 61 01/25/24 15:37 Resp 16 01/25/24 15:37 BP 131/73 01/25/24 15:37 Pulse Ox 100 01/25/24 15:37 Labs 01/25/24 13:04 01/25/24 13:04 Labs: Laboratory Results - last 24 hr 01/24/24 01/24/24 01/25/24 21:05 22:00 13:04 WBC 11.90 H 7.61 RBC 4.71 4.28 Hgb 15.0 13.7 Hct 44.9 40.6 MCV 95 95 MCH 31.8 32.0 MCHC 33.4 33.7 RDW 14.8 H 15.0 H Plt Count 438 H 429 H MPV 8.9 9.1 Immature Gran % 0.2 0.1 Neutrophils % 43.0 45.9 Lymphocytes % 41.2 38.6 Monocytes % 9.1 8.1 Eosinophils % 5.2 5.7 Basophils % 1.3 1.6 Nucleated RBC % 0.0 0.0 Absolute Neutrophils 5.12 3.49 Absolute Lymphocytes 4.90 H 2.94 Absolute Monocytes 1.08 H 0.62 Absolute Eosinophils 0.62 0.43 Absolute Basophils 0.15 0.12 Sodium Cancelled 140 140 Potassium Cancelled 4.0 3.9 Chloride Cancelled 104 104 Carbon Dioxide Cancelled 27.1 25.7 Anion Gap Cancelled 8.9 10.3 BUN Cancelled 17 13 Creatinine Cancelled 0.9 0.8 Est GFR (CKD-EPI 2020) Cancelled 67.50 77.75 Glucose Cancelled 112 H 156 H Calcium Cancelled 9.1 8.6 Troponin I Cancelled < 50
--- NOTE | 2024-01-25 19:11 | PDOC.CMPRO ---
Date of service: 01/25/24 Time of Service: 19:11 Care Management Progress Note Progress Note Text Progress Note Text: Joann was out of her room for testing when CM attempted to meet with her and was discharged before CM was able to return. She was admitted for a TIA but her symptoms resolved quickly and all testing was negative for any acute findings. Pamela was able to be discharged with outpatient follow up. SDOH(Care Management) Screening Will the Patient Participate in the Screening?: Yes Do you worry about having a steady place to live?: no Problems where you live: no known problems In the past 12 months, have you had to go without electric, gas, oil or water in your home?: no Have you or anyone in your house had to go without enough food to eat?: no Has lack of transportation kept you from medical appointments or from doing things needed for daily living?: no Has anyone in your support network made you feel unsafe for any reason?: no
== END 2024-01-25 18:12 | disposition home or self-care (01) ==
LOC: ER 23:05 → MS 23:55
PROVIDERS: Nurse Practitioner Acute Care; Admitting Provider General Practice; Emergency Provider Emergency Medicine; PCP Family Medicine; Visit Provider General Practice
DX: G45.9 Transient cerebral ischemic attack, unspecified (principal); I10 Essential (primary) hypertension; R20.0 Anesthesia of skin; H90.3 Sensorineural hearing loss, bilateral; I73.00 Raynaud's syndrome without gangrene; F41.9 Anxiety disorder, unspecified; E28.2 Polycystic ovarian syndrome; J45.909 Unspecified asthma, uncomplicated; K21.9 Gastro-esophageal reflux disease without esophagitis; E78.5 Hyperlipidemia, unspecified; Z87.891 Personal history of nicotine dependence; Z96.641 Presence of right artificial hip joint; D72.829 Elevated white blood cell count, unspecified; D75.839 Thrombocytosis, unspecified
CPT/HCPCS: 00123; 36415; 70496; 70498; 80048; 92610; 93005; 97162; 99285; 36410; 70450; 70551; 71045; 84484; 85025; 92522; 93010; 93306; 99222; 99239; G0378; J3490

== ENCOUNTER 2024-01-25 17:02 | Outpatient (RCR) | payer MEDICARE, SELFPAY | END 2024-01-27 23:59 | disposition home or self-care (01) | LOC: RT 17:02 | PROVIDERS: PCP Family Medicine; Visit Provider Nurse Practitioner Acute Care | DX: G45.9 Transient cerebral ischemic attack, unspecified (principal) | CPT/HCPCS: 93270 ==

== ENCOUNTER 2024-02-13 07:49 | Outpatient (CLI) | payer MEDICARE, SELFPAY ==
--- NOTE | 2024-02-13 09:02 | W.CARDEVENT ---
Date of service: 02/13/24 Time of Service: 09:02 Cardiac Event Recorder Referring Provider:: Todd Sosa Indications:: TIA Cardiac Event Note: This is a cardiac event recorder. Patient was monitored for 7 days and 2 hours Rhythm throughout was sinus. Average heart rate was 78. Minimum was 58, maximum 119 There were no significant ventricular or supraventricular dysrhythmias. There was no atrial fibrillation. There were no apparent patient symptoms
== END 2024-02-13 07:50 | disposition home or self-care (01) ==
LOC: CARDOPNVT 07:49
PROVIDERS: PCP Family Medicine; Visit Provider Internal Medicine Cardiovascular Disease
DX: G45.9 Transient cerebral ischemic attack, unspecified (principal)
CPT/HCPCS: 93272

== ENCOUNTER 2024-04-19 02:46 | Outpatient (CLI) | payer MEDICARE, SELFPAY ==
--- NOTE | 2024-04-19 | DI.MAMMO_ITS ---
Exam(s) MAMMO SCREENING EXAM: MAMMO SCREENING CLINICAL HISTORY: SCREENING, Z12.31 TECHNIQUE: Mammograms were interpreted according to the usual protocol including computer analysis w [employer] CAD system, tomosynthesis and C-view imaging. COMPARISON: 2017 and 2020 FINDINGS: The breasts are composed of scattered fibroglandular densities, Breast Density category B. No suspicious masses or suspicious microcalcifications are seen in the left breast. In the medial right breast, there is question new area nodularity. Spot compression views and ultras ound are requested further evaluation. No skin thickening or abnormal axillary lymph nodes are seen in either breast. IMPRESSION: Right breast: BI-RADS Category 0 - Incomplete: Need additional imaging evaluation Left breast: Yearly screening mammography is recommended. Breast Density - Category B, scattered fibroglandular densities. A negative radiographic report should not delay biopsy if a dominant or clinically suspicious mass is present. Up to ten percent of cancers are not identified on mammography. A negative report may reinforce clinical impression. Adenosis and dense breasts may obscure an underlying neoplasm. False positive reports average 6 to 10%. Patient will receive a letter notifying them of these results.
--- NOTE | 2024-04-19 | DI.DEXA_ITS ---
Exam(s) XR DEXA BONE DENSITY W/WO DANIEL EXAM: XR DEXA BONE DENSITY W/WO DANIEL CLINICAL HISTORY: POSTMENOPAUSAL, OSTEOPENIA, M85.88 TECHNIQUE: [employer] C densitometer analysis of left hip, lumbar spine and left forearm. Lat eral survey image of the thoracic and lumbar spine. COMPARISON: No exams were available for comparison FINDINGS: Lateral view of the thoracic and lumbar spine shows no evidence of compression fractures. Bone mineral density measurements of the lumbar spine correspond to a total T-score of -1.9, in the osteopenic range. Bone mineral density measurements of the left hip correspond to a total T-score of -1.7. The femora l neck T-score is -1.9, in the osteopenic range.. Theleft forearm bone mineral density measurements correspond to a T-score of the distal 3rd of -1.2, in the osteopenic range.. IMPRESSION: Osteopenia.
== END 2024-04-19 03:06 ==
LOC: DI 02:46
PROVIDERS: PCP Family Medicine; Visit Provider Student in an Organized Health Care Education/Training Program
DX: Z12.31 Encounter for screening mammogram for malignant neoplasm of breast (principal); Z13.820 Encounter for screening for osteoporosis; M85.89 Other specified disorders of bone density and structure, multiple sites
CPT/HCPCS: 77063; 77067; 77080

== ENCOUNTER 2024-04-27 00:39 | Outpatient (CLI) | payer MEDICARE, SELFPAY ==
--- NOTE | 2024-04-27 | DI.US_ITS ---
Exam(s) MG MAMMO SCREEN CALL BACK UNI US BREAST RT COMPLETE EXAM: MG MAMMO SCREEN CALL BACK UNI-RIGHT COMPLETE RIGHT BREAST ULTRASOUND CLINICAL HISTORY: R92.8 Abn mammo, Medial right breast question new area nodularity. TECHNIQUE: Unilateral spot mammographic images obtained with 3D tomosynthesisand utilizing computer aided detection (CAD). . Complete RIGHT breast Ultrasound was also performed, including all 4 quadrants, the retroareolar celine on, and the ipsilateral axilla. COMPARISON: Prior mammograms were reviewed. This additional imaging was performed due to findings described on the recent screening mammogram of 04/19/2024. FINDINGS: DIAGNOSTIC MAMMOGRAM: Additional mammographic views performed todayare somewhat equivocal for the presence of a significant finding. We proceeded with ultrasound... COMPLETE RIGHT BREAST ULTRASOUND: Ultrasound performed today reveals a solitary finding at the 2 o'clock position measuring approximate ly 3 x 2 mm. However, this is difficult to reproduce consistently when passing the transducer over th is region in both radial and anti radial planes. There are no other focal ultrasound findings in the right breast Scanning of the ipsilateral axilla reveals no significant adenopathy. IMPRESSION: 1. Finding at the 2 o'clock position which may corresponding finding. However, this is difficult to reproduce consistently on ultrasound through this region. Appropriate follow-up as discussed by myself with the patient today is repeat right breast imaging in 3 months, this to include repeat right breast mammogram and ultrasound. The patient was informed of these findings and recommendations by myself prior to leaving the departm ent today. BI-RADS Category 3 - 3 month - Probably Benign Finding: Recommend follow-up mammography and ultrasoun d in 3 months Breast Density - Category B - Scattered areas of fibroglandular density Breast density Category C or D implies that the patient has dense breast tissue. Dense breast tissue can make it harder to find cancer on a mammogram. Dense breast tissue is also associated with an incr eased risk of breast cancer. This information about the result of the mammogram report was provided to the patient to raise their awareness. Use this report when you speak with the patient about their risks for breast cancer, which includes their family history. At that time, you may recommend additional screening tests (Ultrasoun d or MRI) as these tests may add significant information. A negative radiographic report should not delay biopsy if a dominant or clinically suspicious mass is present. Up to ten percent of cancers are not identified on mammography. A negative report may reinforce clinical impression. Adenosis and dense breasts may obscure an underlying neoplasm. False positive reports average 6 to 10%. Patient will receive a letter notifying them of these results. A seen on submitted images.
== END 2024-04-27 00:59 ==
LOC: DI 00:39
PROVIDERS: PCP Student in an Organized Health Care Education/Training Program; Visit Provider Student in an Organized Health Care Education/Training Program
DX: Z12.31 Encounter for screening mammogram for malignant neoplasm of breast (principal); N63.12 Unspecified lump in the right breast, upper inner quadrant
CPT/HCPCS: 76642; 77063; 77067

== ENCOUNTER 2024-08-02 02:11 | Outpatient (CLI) | payer MEDICARE, SELFPAY ==
--- NOTE | 2024-08-02 14:15 | DI.MAMMO_ITS ---
Exam(s) MG MAMMO DIAGNOSTIC UNI US BREAST RT LIMITED EXAM: MG MAMMO DIAGNOSTIC UNI CLINICAL HISTORY: Rt breast solitary finding at 2 o'clock approximately 3 x 2 mm, 3-mo f/u. COMPARISON: MG DIAGNOSTIC BILAT MAMMO W/CAD from 11/06/2012 MG MG mammo diagnostic BI from 06/26/2018 MG MG MAMMO SCREENING from 12/01/2020 MG MG MAMMO SCREENING from 04/19/2024 MG MG MAMMO SCREEN CALL BACK UNI from 04/27/2024 US US BREAST RT LIMITED from 08/02/2024 TECHNIQUE: Craniocaudal and mediolateral oblique Full Field Digital Mammography views of right with Computer Aided Diagnosis followed by Tomosynthesis and right breast ultrasound. FINDINGS: Mammography/Tomosynthesis: Masses: Persistent irregular higher density nodule with spiculations in the medial, posterior breast. Approximate measurements 5 x 7 millimeters. No additional lesions. Architectural Distortion: Mild architectural distortion is associated with the nodule. Microcalcifications: No suspicious pleomorphic-type are seen. Skin Thickening/Nipple Retraction: None. Right breast US: Echotexture: Normal appearance of the glandular tissue. Shadowing: No suspicious foci. Cyst: None. Solid lesions: 4 x 3 x 4 millimeter irregular hypoechoic lesion in the 2 o'clock position, 4 cm from the nipple. It shows mild shadowing. Ductal dilation: None. IMPRESSION: 1. Nodule in the medial right breast show suspicious features on mammogram and ultrasound. 2. Biopsy recommended. Findings were discussed with the patient following the examination. 3. Findings called to Michael Moya PA-C BI-RADS Category 4 - Suspicious Abnormality: Biopsy should be considered Breast Density - Category B - Scattered areas of fibroglandular density A negative radiographic report should not delay biopsy if a dominant or clinically suspicious mass is present. Up to ten percent of cancers are not identified on mammography. A negative report may reinforce clinical impression. Adenosis and dense breasts may obscure an underlying neoplasm. False positive reports average 6 to 10%. Patient will receive a letter notifying them of these results.
== END 2024-08-02 02:31 ==
LOC: DI 02:11
PROVIDERS: PCP Student in an Organized Health Care Education/Training Program; Visit Provider Student in an Organized Health Care Education/Training Program
DX: Z12.31 Encounter for screening mammogram for malignant neoplasm of breast (principal); R92.8 Other abnormal and inconclusive findings on diagnostic imaging of breast
CPT/HCPCS: 76642; 77061; 77065; G0279